=== PATIENT | male | born 1940 | race Caucasian/White ===

== ENCOUNTER → 2024-01-04 15:18 | Outpatient (REF) | payer BC, SELFPAY ==
[2024-01-04 16:25] LABS: Urine Albumin Trace (Neg - Trace); Urine Bilirubin Negative (Negative); Urine Character Clear (Clear); Urine Color Yellow; Urine Glucose Negative (Negative); Urine Ketone Negative (Negative); Urine Leukocyte 2+ (Negative); Urine Nitrite Negative (Negative); Urine Occult Blood Negative (Negative); Urine Urobilinogen Negative (Neg - 1+)
[2024-01-04 16:35] LABS: Urine Bacteria Many (Negative); Urine Red Blood Cell 0-2 /HPF (0-2); Urine White Cell 80-90 /HPF (0-5)
== END ==
LOC: REG 15:18
PROVIDERS: ATTENDING PHYSICIAN Family Medicine
DX: R39.9 Unspecified symptoms and signs involving the genitourinary system (principal); R39.15 Urgency of urination
CPT/HCPCS: 81003; 81015; 87077; 87086

== ENCOUNTER 2024-01-09 11:52 | Emergency (ER) | payer BC, SELFPAY ==
[2024-01-09 12:04] VITALS: BP 130/73
--- NOTE | 2024-01-09 15:24 | ED.GENMED ---
History of Present Illness
General
Chief Complaint: Back Pain
Source: patient, records, spouse and family
Exam Limitations: none
Time Seen by Provider: 01/09/24 15:08
Nursing documentation reviewed up to this point in time: agreed with
History of Present Illness
History of Present Illness:
83-year-old male presents emergency room with thoracic back pain since Tuesday. He fell on Tuesday and was seen at [facility]. He had a small subarachnoid hemorrhage that was observed in the emergency department. He was able to be discharged on
Tuesday night after a repeat CT scan. He is having severe pain. He took an oxy contin that he had from the past.
Past History
Past History
ED Past Medical History: Cancer (Prostate CA), CVA, GERD, HTN, Hypercholesterolemia, Other (Aortic stenosis, Gi bleeding, Cellulitis, ) and Other (TIA)
ED Past Surgical History: Cardiac (Aortic valve replaced), Orthopedic (Total right hip replacement. Left total knee replacement), Tonsilectomy and Other (cystectomy)
Social History
Tobacco: Non-smoker
Alcohol: None
Drug: None
Personal:
Living: with family
Employment: Retired
Review of Systems
Review of Systems
Allergies reviewed?: Yes
All Other Systems: Not applicable
Constitutional: Reports no symptoms
EENT: Reports no symptoms
Respiratory: Reports no symptoms
Cardiac: Reports no symptoms
ABD/GI: Reports no symptoms
: Reports no symptoms
Musculoskeletal: Reports back pain
Skin: Reports no symptoms
Neurological: Reports no symptoms
Endocrine: Reports no symptoms
Hematologic/Lymphatic: Reports no symptoms
Psychiatric: Reports no symptoms
Phy Exam
Physical Exam
Physical Exam:
Physical Exam
General: no apparent distress, not acutely ill
Neck: supple. no meningeal signs. normal posterior pharynx
Heart: s1/s2 regular rate and rhythm, no murmur. equal radial
pulses.
HEENT: Pupils equal round reactive to light, EOMI
Back: Mild tenderness to palpation at T6/T7, no step-off
Lungs: no acute respiratory distress. clear bilaterally
Abdomen: normal bowel sounds. not tender. no CVAT
Neuro: alert and oriented. no focal neurological deficits cranial nerves II through XII intact
Skin: no rash
Psychiatric: well kept. interactive and cooperative
Extremities: no edema. no calf tenderness. negative homans. good distal pulses
Course
Orders/Labs/Results
Orders:
Orders
01/09/24 15:23
CR Thoracic Spine 3 Views Urgent
Reason For Exam: midthoracic pain after fall 3 days ago
01/09/24 17:28
Cephalexin Monohydrate [Keflex] 500 mg PO NOW STA
Vital Signs
Initial and Last Documented VS:
Initial Vital Signs
Temp Pulse Resp BP Pulse Ox
97.9 F 60 16 130/73 96
01/09/24 12:04 01/09/24 12:04 01/09/24 12:04 01/09/24 12:04 01/09/24 12:04
Last Documented Vital Signs
Temp Pulse Resp BP Pulse Ox
97.9 F 60 18 129/71 99
01/09/24 12:04 01/09/24 16:50 01/09/24 16:50 01/09/24 16:50 01/09/24 16:50
MDM/Problems Addressed
Differential Diagnosis Includes:
UTI, vertebral fracture
MDM/Problems Addressed:
83-year-old male with thoracic pain after fall. No fracture. Do not suspect dissection. Patient also with UTI. Treat with Keflex. Follow-up with primary care.
*Radiology
Radiology exam reviewed: radiology read reviewed (T-spine x-ray no acute findings)
*Pulse Oximetry
Patient hypoxic: no
*Critical Care Note
Total Time (30-74mins, 75-104mins- exclusive of procedures): Not Applicable
Patient Management
Social determinants of health affecting care: Living situation and Strong social support
Escalation/DeEscalation of care consider admission/obs:
Admit not indicated
ED Attending Note
-
Portions of this chart may have been created with voice recognition software.� Occasional wrong word or��sound alike� substitutions may have occurred due to the inherent limitations of voice recognition software.
Discharge Plan
Departure
Patient Disposition: Home (Routine Discharge)
Date of Disposition: 01/09/24
Time of Disposition: 17:30
Patient with high blood pressure during this ER visit?: Yes
Condition: Good
Discharge Problem:
Pain in thoracic spine, Acute UTI
Instructions: Upper Back Pain (DC), Urinary Tract Infection, Adult ED, BLOOD PRESSURE
Prescriptions:
New
cephalexin 500 mg capsule
500 mg PO Q12H 7 Days Qty: 14 0RF
No Action
ascorbic acid (vitamin C) [Vitamin C] 500 mg Tablet
500 mg PO Q48H
cholecalciferol (vitamin D3) [Vitamin D3] 25 mcg (1,000 unit) Tablet
50 mcg PO Q48H
multivitamin Tablet
1 tab PO DAILY
vitamin B complex Tablet Extended Release
1 tab PO Q48H
lidocaine 4 % Adhesive Patch,Medicated
1 patch topical DAILY Qty: 30 0RF
docusate sodium 100 mg Capsule
100 mg PO BID Qty: 60 0RF
polyethylene glycol 3350 [HealthyLax] 17 gram Powder In Packet
17 g PO DAILY Qty: 30 0RF
acetaminophen [Pain Relief ES (acetaminophen)] 500 mg Tablet
1,000 mg PO TID Qty: 60 0RF
baclofen 5 mg Tablet
5 mg PO BID Qty: 14 0RF
oxycodone 5 mg tablet
5 mg PO Q6H PRN (Reason: Pain) Qty: 10 0RF
Referrals:
Zheng Reyes MD [Family Provider] - Call in 1-3 days for appt
Interventions
Interventions:
*Nursing Disposition Last Done: 01/09/24 17:51
ED-Musculoskeletal Assessment Last Done: 01/09/24 16:00
Discharge Date and Time
Discharge Date/Time: 01/09/24 17:52
Print Language: BRAZILIAN
[2024-01-09 16:50] VITALS: BP 129/71
[2024-01-09] MEDS: KEFLEX 500 MG PO (17:42)
== END 2024-01-09 17:52 | disposition home or self-care (01) ==
LOC: EMR 11:52
PROVIDERS: EMERGENCY PHYSICIAN Emergency Medicine; FAMILY PHYSICIAN Family Medicine
DX: M54.6 Pain in thoracic spine (principal); N39.0 Urinary tract infection, site not specified; I10 Essential (primary) hypertension; W19.XXXA Unspecified fall, initial encounter
CPT/HCPCS: 99283; 72072

== ENCOUNTER → 2024-01-19 14:55 | Outpatient (REF) | payer MEDICARE, BC, SELFPAY ==
[2024-01-19 16:01] LABS: Urine Albumin Negative (Neg - Trace); Urine Bilirubin Negative (Negative); Urine Character Clear (Clear); Urine Color Yellow; Urine Glucose Negative (Negative); Urine Ketone Negative (Negative); Urine Leukocyte Trace (Negative); Urine Nitrite Negative (Negative); Urine Occult Blood Negative (Negative); Urine Urobilinogen Negative (Neg - 1+)
[2024-01-19 16:09] LABS: Urine Bacteria Few (Negative); Urine Red Blood Cell 0-2 /HPF (0-2)
== END ==
LOC: REG 14:55
PROVIDERS: ATTENDING PHYSICIAN Family Medicine
DX: N30.00 Acute cystitis without hematuria (principal)
CPT/HCPCS: 81003; 81015; 87077; 87086; 87186

== ENCOUNTER 2024-03-06 11:40 | Inpatient (IN) | payer MEDICARE, BC, SELFPAY ==
[2024-03-03] VITALS (7 sets, daily range): BP systolic 158–176; BP diastolic 76–101; BMI 27.9; BMI 28.0
[2024-03-03 19:03] LABS: % Basophils 0.6 % (0-2); % Eosinophils 1.3 % (0-6); % Immature Granulocytes 1.1 % (0-0.5); % Monocytes 4.7 % (1.7-9.3); % Neutrophils 79.3 % (42.2-75.2); Absolute Basophils 0.1 10^3/uL (0-0.2); Absolute Eosinophils 0.2 10^3/uL (0-0.7); Absolute Immature Granulocytes 0.2 10^3/uL (0-0.05); Absolute Lymphocytes 1.7 10^3/uL (1.2-3.4); Absolute Monocytes 0.6 10^3/uL (0.1-0.6); Absolute Neutrophils 10.6 10^3/uL (1.4-6.5); Hematocrit 41.8 % (39.0-52.0); Hemoglobin 12.8 g/dL (13.0-18.0); Mean Corp Hgb Conc. 30.6 g/dL (33.0-37.0); Mean Corpuscular Volume 88.2 fL (80.0-94.0); Mean Platelet Volume 10.7 fL (7.4-10.4); Nucleated Red Blood Cells % 0 % (-); Platelet Count 153 10^3/uL (130-400); Red Blood Cell Count 4.74 10^6/uL (4.70-6.10); Red Cell Dist. Width 16.5 % (11.5-14.5); White Blood Cell Count 13.3 10^3/uL (4.8-10.8)
[2024-03-03 19:13] LABS: ALT (SGPT) 21 U/L (0-50); AST (SGOT) 31 U/L (17-59); Albumin 3.5 g/dl (3.5-5.0); Alkaline Phosphatase 129 U/L (38-126); Blood Urea Nitrogen 25 mg/dl (9-20); Calcium 8.7 mg/dl (8.4-10.2); Carbon Dioxide 29 mmol/L (22-30); Chloride 102 mmol/L (98-107); Estimated Creatinine Clearance 76 ml/min; Glucose 96 mg/dl (70-99); Potassium 4.1 mmol/L (3.5-5.1); Sodium 138 mmol/L (135-145); Total Bilirubin 0.9 mg/dl (0.2-1.3); Total Protein 6.2 g/dl (6.3-8.2); eGFR > 60.00
--- NOTE | 2024-03-03 20:43 | ED.MUSCINJ ---
HPI-Injury
General
Chief Complaint: Fall
Source: patient
Exam Limitations: none
Time Seen by Provider: 03/03/24 20:03
Nursing documentation reviewed up to this point in time: agreed with
History of Present Illness-Injury
Is this injury a work related problem?: No
Is pt an associate of [facility]?: No
Initial Injury comments:
Patient had a trip and all at home. Denies hitting his head. Complains of right shoulder and right hip pain. Incident occurred just [place]. Unable to get self up. Brought to ED via EMS for eval.[facility] brain surger for brain tumor. Walks with a walker
normally. Unable to bear weight RLE
Past History
Past History
ED Past Medical History: Cancer (Prostate CA), CVA, GERD, HTN, Hypercholesterolemia, Other (Aortic stenosis, Gi bleeding, Cellulitis, ) and Other (TIA)
ED Past Surgical History: Cardiac (Aortic valve replaced), Orthopedic (Total right hip replacement. Left total knee replacement), Tonsilectomy and Other (cystectomy)
Social History
Tobacco: Non-smoker
Alcohol: None
Drug: None
Personal:
Living: with family
Employment: Retired
Review of Systems
Review of Systems
Allergies reviewed?: Yes
All Other Systems: ROS reviewed and negative except as documented in HPI and ROS
Constitutional: Reports no symptoms
EENT: Reports no symptoms
Respiratory: Reports no symptoms
Cardiac: Reports no symptoms
ABD/GI: Reports no symptoms
: Reports no symptoms
Musculoskeletal: Reports joint pain (pain to right shoulder right hip)
Skin: Reports no symptoms
Neurological: Reports weakness
Psychiatric: Reports no symptoms
Musculoskeletal Injury Exam
Musculoskeletal Injury Exam
Right Shoulder:
Pain with Movement?: Moderate
Tender to palpation?: Moderate
Soft tissue swelling?: None
External deformity and angulation?: None
Joint effusion?: None
Contusion?: Moderate
Hematoma-local bleeding into tissue?: None
Crepitus with movement?: No
Joint instability?: No
Malalignment/deformity?: No
Range of motion: Limited
Distal skin color and temperature: normal-warm & good color
Capillary Refill: normal
Normal distal neurovascular exam?: Yes
Right Hip:
Pain with Movement?: Moderate
Tender to palpation?: Moderate
Soft tissue swelling?: None
External deformity and angulation?: None
Joint effusion?: None
Contusion?: Moderate
Hematoma-local bleeding into tissue?: None
Strain- Sprain- Tear (Connective tissue injury)?: Moderate
Crepitus with movement?: No
Joint instability?: No
Malalignment/deformity?: No
Range of motion: Limited
Distal skin color and temperature: normal-warm & good color
Capillary Refill: normal
Normal distal neurovascular exam?: Yes
Phy Exam
General Physical Exam
General Presentation: well appearing and moderate distress
General age: appears stated age
General Skin: warm and dry
General Habitus: normal
General Mental: alert
General Hydration: appears well hydrated
Cardiovascular Exam
Cardiovascular Exam: regular rate/rhythm
Pulmonary Exam
Pulmonary Exam: no respiratory distress and chest non tender
Gastrointestinal Exam
Gastrointestinal Exam: normal bowel sounds and non tender
Musculoskeletal Exam
Musculoskeletal Exam: neuro vasc intact
Skin Exam
Skin Exam: normal color, warm/dry and no rash
Psychiatric Exam
Psychiatric Exam: normal mood/affect
Injury Course
Orders/Labs/Results
Orders:
Orders
03/03/24 Dinner
Regular
At Your Request: Limited Participation
Does patient need a safe tray?: No
03/03/24 18:19
CR Hip - RT w/wo Pel 2-3 Vw* Urgent
Comment:
Reason For Exam: fall
Include a pelvis x-ray?: Yes
CR Shoulder, Trauma - Right Urgent
Comment:
Reason For Exam: fall
03/03/24 18:26
Complete Blood Count/With Diff Urgent
Comprehensive Metabolic Panel Urgent
03/03/24 20:57
HYDROmorphone [Dilaudid] 0.5 mg IV NOW STA
Ondansetron Injectable [Zofran] 4 mg IV NOW STA
03/03/24 21:16
Admit/Transfer Patient As Directed
Co-Sign Provider:
Level of Care: Observation services
Assign to:: Medical/Surgical
Physician / Group: dylan
Diagnosis: proximal humerus fracture
Shoulder Immobilizer Right- Tx ONCE
PRN Pain Medication Management As Directed
May give lesser potent ordered pain med per pt: Yes
preference::
Protocol:: Medication orders for pain may be administered in a
manner that supports deferring to patient preference
when the pt is:
- Requesting an ordered lesser potent pain medication.
Least to most potent pain medications are defined
as: acetaminophen < NSAID < tramadol < opioids
(morphine, oxycodone, hydromorphone).
- Requesting a lesser dose of the same medication IF
ORDERED.
- Requesting a less intrusive route of administration
if both routes are prescribed by the provider (PO <
IV).
03/03/24 21:17
Code Status As Directed
Resuscitation Status: Full Code
03/03/24 22:21
Acetaminophen [Tylenol] 650 mg PO Q4HPRN PRN
Amiodarone [Pacerone] 200 mg PO DIRECTED
HYDROmorphone [Dilaudid] 0.5 mg IV Q4HPRN PRN
Ondansetron Injectable [Zofran] 4 mg IV Q6HPRN PRN
03/03/24 22:21
Activity As Directed
Activity Level: As Tolerated
Vital Signs As Directed
Frequency: Per unit guidelines
Ot Eval And Treat Routine
Pt Eval And Treat Routine
Activity Level: As Tolerated
DX Deep Vein Thrombosis Video Routine
03/04/24 06:00
Complete Blood Count/With Diff IN AM
Comprehensive Metabolic Panel IN AM
03/04/24 08:00
Heparin 5,000 units SC Q12
Metoprolol Xl [Toprol Xl] 25 mg PO DAILY
Valsartan [Diovan] 160 mg PO DAILY
Abnormal Lab Results
03/03/24
18:26
WBC 13.3 H 10^3/uL
(4.8-10.8)
Hgb 12.8 L g/dL
(13.0-18.0)
MCHC 30.6 L g/dL
(33.0-37.0)
RDW 16.5 H %
(11.5-14.5)
MPV 10.7 H fL
(7.4-10.4)
Abs Immat Gran (auto) 0.2 H 10^3/uL
(0-0.05)
Absolute Neuts (auto) 10.6 H 10^3/uL
(1.4-6.5)
Immature Gran % 1.1 H %
(0-0.5)
Neutrophils % 79.3 H %
(42.2-75.2)
Lymphocytes % 13.0 L %
(20.5-51.1)
BUN 25 H mg/dl
(9-20)
Alkaline Phosphatase 129 H U/L
(38-126)
Total Protein 6.2 L g/dl
(6.3-8.2)
03/03/24 18:26
01/25/25 18:26
*Radiology
Radiology exam reviewed: radiology read reviewed
*Pulse Oximetry
Patient hypoxic: no
*Critical Care Note
Total Time (30-74mins, 75-104mins- exclusive of procedures): Not Applicable
Update Note
Update Note:
Patient to ED s/p fall. Complains of pain to right shoulder and right hip. Xrays reviewed. Fx noted of right humeral neck and inferior/superior Pelvic rings. He is unable to safely transfer, unable to ambulate. Will admit to hospitalist. Will
need PT, case management consult.
ED Attending Note
-
Portions of this chart may have been created with voice recognition software.� Occasional wrong word or��sound alike� substitutions may have occurred due to the inherent limitations of voice recognition software.
Discharge Plan
Departure
Patient Disposition: Admit
Date of Disposition: 03/03/24
Time of Disposition: 20:52
Presentation/result/management discussed w/ accepting MD/DO: Hospitalist
Patient with high blood pressure during this ER visit?: No
Condition: Fair
Covid-19: Not Applicable
Discharge Problem:
Fracture, humerus, proximal, Fracture of pubic ramus, Ambulatory dysfunction
Interventions
Interventions:
*Risk Screen - Suicide Last Done: 03/03/24 18:08
*General Assessment Last Done: 03/03/24 18:08
*Neglect/Abuse Screening Last Done: 03/03/24 18:08
ED- Fall Risk Assessment Last Done: 03/03/24 22:15
*ED COVID-19 Vaccine History Last Done: 03/03/24 18:38
*Nursing Disposition Last Done: 03/03/24 22:15
ED-Musculoskeletal Assessment Last Done: 03/03/24 18:38
ED- Neurological Assessment Last Done: 03/03/24 18:38
ED-Skin Assessment Last Done: 03/03/24 18:38
Discharge Date and Time
Discharge Date/Time: 03/03/24 22:16
[2024-03-03] MEDS: ZOFRAN 4 MG IV (21:02)
[2024-03-03] MEDS: DILAUDID 0.5 MG IV (21:04)
--- NOTE | 2024-03-03 21:23 | HPS.HSE ---
Family Physician
-
Family Physician: Zheng Reyes
Chief Complaint
-
fall
History of Present Illness
83-year-old male past medical history of brain tumor status post resection in [place] with residual balance difficulties, constipation, paroxysmal atrial fibrillation, HFpEF, aortic stenosis status post bioprosthetic AVR, hypertension, prostate
cancer, presenting with fall. He was trying to get up and grab his walker and he lost balance and fell onto his right side. He is complaining of pain of his right shoulder as well as his right hip.
He does not take any blood thinners. Denies smoking or alcohol use.
Medical History
Past Medical History
Past Medical History: Reports Other (brain tumor status post resection in [place] with residual balance difficulties, constipation, paroxysmal atrial fibrillation, HFpEF, aortic stenosis status post bioprosthetic AVR, hypertension, prostate cancer,)
Past Surgical History: Reports None
Social History
Tobacco: Non-smoker
Alcohol: None
Drug: None
Family History
Family History: Not pertinent
Allergies / Home Medications
Allergies reflects when Allergies were last updated in [facility].
Home Medications with original date entered in [facility]
Allergy/Medication List:
Allergies
Allergy/AdvReac Type Severity Reaction Status Date / Time
cat dander Allergy WATERY Verified 03/03/24 18:18
EYES/TINGLING
mold Allergy itchy eyes Verified 03/03/24 18:18
pollen extracts Allergy PND, Verified 03/03/24 18:18
cough,
nasal
congestion
ragweed pollen Allergy WATERY Verified 03/03/24 18:18
EYES/TINGLING
tree nut Allergy FLUSHING/IT Verified 03/03/24 18:18
LIU
stone fruit Allergy flushing,it Uncoded 03/03/24 18:18
liu
Home Medications
amiodarone 200 mg tablet 200 mg PO DIRECTED 03/03/24
metoprolol succinate 25 mg tablet,extended release 24 hr 25 mg PO DAILY 03/03/24
valsartan 160 mg tablet 160 mg PO DAILY 03/03/24
Review of Systems
-
History Source: Patient
A 12 point ROS was completed and negative except as noted: Yes
Constitutional: Reports No Symptoms
EENT: Reports No Symptoms
Respiratory: Reports No Symptoms
Cardiac: Reports No Symptoms
Abdomen/GI: Reports No Symptoms
: Reports No Symptoms
Musculoskeletal: Reports No Symptoms
Skin: Reports No Symptoms
Neurological: Reports No Symptoms
Endocrine: Reports No Symptoms
Hematologic/Lymphatic: Reports No Symptoms
Psych: Reports No Symptoms
Physical Exam
Vital Signs
Vital Signs
Temp Pulse Resp BP Pulse Ox
98.6 F 60 20 173/76 91
03/03/24 18:08 03/03/24 21:01 03/03/24 21:01 03/03/24 21:01 03/03/24 18:08
Physical Exam
General: Well Developed, Well Nourished and No Apparent Distress
HEENT: NormoCephalic, Moist mucous membranes and Atraumatic
Respiratory: Clear
Cardiac: S1/S2 and Regular Rhythm; No Murmur or Rub
GI: Soft, Non Tender, Non Distended and Normal Bowel Sounds; No Organomegaly
Rectal: Deferred by Provider
Musculoskeletal: No Clubbing, No Cyanosis and No Edema
Skin: No Rash
Neuro: Nonfocal/grossly intact
Laboratory Results
-
03/03/24 18:26
03/03/24 18:
Laboratory Results
Total Bilirubin 0.9 mg/dl (0.2-1.3) 03/03/24 18:26
AST 31 U/L (17-59) 03/03/24 18:
ALT 21 U/L (0-50) 03/03/24 18:26
Alkaline Phosphatase 129 U/L (38-126) H 03/03/24 18:26
Data Reviewed
-
Lab Data: Labs Reviewed by me
Old Records: Reviewed
Impression/Plan
-
IMPRESSION:
PLAN:
# Comminuted fracture of the proximal humerus involving surgical neck
#Questionable nondisplaced fracture of the right clavicle middle third
-Sling to be placed
-Tylenol, Dilaudid for pain
-PT/OT
-Follow-up with [facility]
# Mildly displaced right superior/inferior pubic rami fractures
-Pain control
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
Constipation
Aortic stenosis status post bioprosthetic AVR
Paroxysmal atrial fibrillation
-Not on anticoagulation
-Continue amiodarone
-Metoprolol
Chronic HFpEF
Essential hypertension
-Continue valsartan
Prostate cancer
Full code
DVT prophylaxis�heparin
Regular diet
--- NOTE | 2024-03-03 22:37 | PTCARENOTE ---
Patient arrived to [facility] from ED, assisted to bed from stretcher. Patient is AAOx3, very pleasant, R arm sling in place. C/o pain to R arm and R hip. VSS, assessment on going.
[2024-03-03] MEDS: TYLENOL 650 MG PO (22:39)
--- NOTE | 2024-03-03 23:10 | PTCARENOTE ---
Patient normally uses CPAP at night while sleeping but stated his machine at home has been broken for last two weeks; he is also unsure of his settings. This RN offered to get orders for CPAP but patient declined at this time.
[2024-03-04] MEDS: DILAUDID 0.5 MG IV ×4 (02:06→18:32)
[2024-03-04 02:13] VITALS: BP 136/73
[2024-03-04 06:00] VITALS: BMI 28.1
[2024-03-04 06:24] LABS: % Basophils 0.6 % (0-2); % Eosinophils 0.1 % (0-6); % Immature Granulocytes 0.5 % (0-0.5); % Lymphocytes 6.4 % (20.5-51.1); % Monocytes 3.9 % (1.7-9.3); % Neutrophils 88.5 % (42.2-75.2); Absolute Basophils 0.1 10^3/uL (0-0.2); Absolute Immature Granulocytes 0.1 10^3/uL (0-0.05); Absolute Lymphocytes 0.9 10^3/uL (1.2-3.4); Absolute Monocytes 0.6 10^3/uL (0.1-0.6); Absolute Neutrophils 12.3 10^3/uL (1.4-6.5); Hematocrit 35.9 % (39.0-52.0); Hemoglobin 11.2 g/dL (13.0-18.0); Mean Corp Hgb Conc. 31.2 g/dL (33.0-37.0); Mean Corpuscular Hgb 27.3 pg (27.0-31.0); Mean Corpuscular Volume 87.3 fL (80.0-94.0); Nucleated Red Blood Cells % 0 % (-); Platelet Count 134 10^3/uL (130-400); Red Blood Cell Count 4.11 10^6/uL (4.70-6.10); Red Cell Dist. Width 16.6 % (11.5-14.5); White Blood Cell Count 13.9 10^3/uL (4.8-10.8)
[2024-03-04 06:43] LABS: ALT (SGPT) 18 U/L (0-50); AST (SGOT) 28 U/L (17-59); Albumin 2.9 g/dl (3.5-5.0); Alkaline Phosphatase 94 U/L (38-126); Blood Urea Nitrogen 31 mg/dl (9-20); Calcium 8.2 mg/dl (8.4-10.2); Carbon Dioxide 26 mmol/L (22-30); Chloride 104 mmol/L (98-107); Estimated Creatinine Clearance 76 ml/min; Glucose 102 mg/dl (70-99); Potassium 5.1 mmol/L (3.5-5.1); Sodium 137 mmol/L (135-145); Total Bilirubin 1.2 mg/dl (0.2-1.3); Total Protein 5.5 g/dl (6.3-8.2); eGFR > 60.00
[2024-03-04 07:20] VITALS: BP 136/79
--- NOTE | 2024-03-04 09:20 | W.PN.HOSP.TC ---
Today's Communication/Plan
-
Consult orthopedics
Continue with pain regimen and PT eval
Assessment / Plan
Assessment / Plan
Mechanical fall leading to below fractures
# Comminuted fracture of the proximal humerus involving surgical neck
#Questionable nondisplaced fracture of the right clavicle middle third
-Consult orthopedics because the humerus fracture is involving the surgical neck. Continue with the sling.
-cw Tylenol, Dilaudid for pain
-cw PT/OT
# Mildly displaced right superior/inferior pubic rami fractures
-cw Pain control
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
Paroxysmal atrial fibrillation
-Not on anticoagulation
-Continue amiodarone
-Metoprolol
-Check EKG
Chronic HFpEF -clinically seems compensated . LE edema noted which he says is chronic. Not on diuretics. Follow wt and for symptoms.
Aortic stenosis status post bioprosthetic AVR - no SOB or CP .
Essential hypertension
-Continue valsartan
Prostate cancer
Full code
DVT prophylaxis�heparin
Regular diet
Anticipated Discharge: 24 - 48 hours
Subjective/Interval History
-
Date of Service: March 04, 2024
Complains of pain from the right arm and as well as the right pelvis with movement.
Is a chronic neck pain no different after the fall. He is usually restricted motions to the right side of the neck because of his arthritis.
Since his brain surgery he has been unstable and uses a walker. Yesterday he was trying to get up from the sofa which is bit low for him and he lost balance and he fell onto the right side. No loss of consciousness. No prior falls leading to
fractures recently. In the past he had a fall and right hip fracture which needed surgery.
Did not see any new changes with his body or any new medical issues per patient.
Denies lightheadedness or dizziness when he stands up from chairs or his bed.
Objective Data
-
Labs:
Laboratory Results
03/04/24
05:23
WBC 13.9 H
Hgb 11.2 L
Hct 35.9 L
Plt Count 134
Sodium 137
Potassium 5.1
Chloride 104
Carbon Dioxide 26
BUN 31 H
Creatinine 0.9
Glucose 102 H
Calcium 8.2 L
Total Bilirubin 1.2
AST 28
ALT 18
Alkaline Phosphatase 94
Vital Signs:
Vital Signs
Temp Pulse Resp BP Pulse Ox
97.2 F 61 14 136/79 100
03/04/24 07:20 03/04/24 07:20 03/04/24 07:20 03/04/24 07:20 03/04/24 07:20
I&O
03/03/24 03/04/24 03/05/24
06:59 06:59 06:59
Intake Total 460 / 460
Balance 460 / 460
Review of Systems
-
Constitutional: Denies Fever
EENT: Denies Sore Throat
Respiratory: Denies Cough or Trouble Breathing
Cardiac: Denies Chest Pain
Abdomen/GI: Denies Abdominal Pain, Nausea or Vomiting
Neuro: Denies Dizzy
Physical Exam
-
General: No Apparent Distress
HEENT: Moist Mucous Membranes
Respiratory: Clear to Auscultation (Anteriorly) and Non Labored Respirations; Negative Accessory Resp Muscle Use
Cardiac: Regular Rhythm and S1/S2
GI: Soft
Musculoskeletal: Edema, Right Lower Extrem and Edema, Left Lower Extrem (1+ BL . Chronic per pt)
Neuro: AO x 3
Psych: Calm
Data Reviewed
-
Labs: Labs Reviewed by me
[2024-03-04 10:25] VITALS: BP 136/78; PULSE 61
[2024-03-04 10:38] VITALS: BP 136/78; PULSE 61
--- NOTE | 2024-03-04 11:07 | CON.ORTHO ---
Consultation
-
Date/Time Consultation Requested: 03/04/2024
Date/Time Consultation Performed: 03/04/2024
Requesting Provider: Dr. Contreras
Performing Provider: Arti Chowdhury PA-C, for Dr. Steve Treviño
Reason for Consultation: Right pelvic fracture; right proximal humerus fracture
Consultation - Orthopedics
History
HPI: This is an 83-year-old male who sustained a fall prior to arrival. He was complaining of right shoulder and right hip pain and was unable to get himself up. X-rays of the right shoulder and right hip were taken in the emergency department.
These demonstrated a comminuted fracture of the proximal humerus involving the surgical neck and questionable nondisplaced fracture of the right clavicle. He is also noted to have superior and inferior pubic rami fractures of his right hip with
mild displacement. 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 He had a short rehab stay and was then discharged home with home care. He recently had another fall in which he hit his head and
was admitted at [facility]. They have continued with the home care through [facility]. Would have only relies on a walker to ambulate and does currently live with his at home.
past medical history: Significant for brain tumor, paroxysmal atrial fibrillation, HFpEF, aortic stenosis, hypertension, prostate cancer.
Past surgical history: Brain mass resection, aortic valve replacement, right hip hemiarthroplasty, right hip conversion to total hip arthroplasty, left hip hemiarthroplasty.
Social history: Denies tobacco or alcohol use. Lives at home with spouse, uses walker at baseline.
Family history: Noncontributory.
Review of systems: All systems reviewed and negative except for those mentioned in HPI.
Allergies / Home Medications
Allergy/AdvReac Type Severity Reaction Status Date / Time
cat dander Allergy WATERY Verified 03/03/24 18:18
EYES/TINGLING
mold Allergy itchy eyes Verified 03/03/24 18:18
pollen extracts Allergy PND, Verified 03/03/24 18:18
cough,
nasal
congestion
ragweed pollen Allergy WATERY Verified 03/03/24 18:18
EYES/TINGLING
tree nut Allergy FLUSHING/IT Verified 03/03/24 18:18
LIU
stone fruit Allergy flushing,it Uncoded 03/03/24 18:18
liu
�Medication �Instructions �Recorded
amiodarone 200 mg tablet 200 mg PO DIRECTED AFIB 03/03/24
metoprolol succinate 25 mg 25 mg PO DAILY Blood Pressure 03/03/24
tablet,extended release 24 hr
valsartan 160 mg tablet 160 mg PO DAILY Blood Pressure 03/03/24
Vital Signs / Lab Results
Temp Pulse Resp BP Pulse Ox
97.2 F 61 14 136/79 100
03/04/24 07:20 03/04/24 07:20 03/04/24 07:20 03/04/24 07:20 03/04/24 07:20
03/04/24 05:23
03/04/24 05:23
Physical examination:
General: Well-developed, well-nourished male in no acute distress. AAOx4.
HEENT: Atraumatic, normocephalic, neck supple.
Lungs: Nonlabored breathing on room air, no audible wheezing.
Right hip: Full range of motion with mild discomfort in the groin. No tenderness to palpation. Full range of motion of knee without pain. Calf is soft and nontender to palpation. Neurovascular intact distally.
Right shoulder: Moderate swelling over proximal aspect of upper arm. Tenderness to palpation over proximal humerus. Range of motion not tested of shoulder due to known fracture. Full range of motion of elbow, wrist, and hand without pain.
Neurovascular intact distally.
Radiographic studies:
X-rays of the right hip show evidence of a right total hip arthroplasty in excellent alignment. Mildly displaced inferior and superior pubic rami fractures noted.
X-rays of the right shoulder show evidence of a comminuted proximal humerus fracture. Questionable fracture of the distal third of the clavicle.
Assessment / Plan
Assessment: Right pubic rami fractures; right proximal humerus fracture.
Plan: Patient seen in tandem with Dr. Treviño. Unfortunately, Mr. Jones sustained right sided pelvic fractures as well as a right proximal humerus fracture during his fall yesterday. At this time, these do not require surgical intervention. For
the right proximal humerus fracture, he should remain nonweightbearing on the right upper extremity. He should remain immobilized in the sling full-time and lift nothing heavier than a coffee cup in his right hand. In regards to the right pubic
rami fractures, he may weight-bear as tolerated, using an assistive device. Per his , Felicia, he does rely heavily on his walker for ambulation due to balance issues following his brain surgery. He will work with PT/OT while inpatient, but will
likely require a rehab stay once stabilized. We will plan to follow-up with him on an outpatient basis. We would like to see him in the office in 1 to 2 weeks for repeat x-rays of the right shoulder and pelvis. All questions were answered and
patient and his were in agreement with treatment recommendations.
[2024-03-04 11:35] LABS: TSH 0.77 uIU/ml (0.47-4.68)
[2024-03-04] MEDS: DIOVAN 160 MG PO (11:43)
[2024-03-04] MEDS: TOPROL XL 25 MG PO (11:43)
[2024-03-04] MEDS: HEPARIN 5000 UNITS SC ×2 (11:44→20:25)
--- NOTE | 2024-03-04 11:56 | PTOTSP ---
Acute Care Evaluation
Pt currently presents with clinical signs of mild to moderate previously dx pharyngeal dysphagia characterized by coughing on thin liquids. Although pt can typically tolerate a certain amount of airway invasion with thin liquid consistencies when he
is at his baseline, healthy status, the combination of his chronic pharyngeal impairment with the pt's current decompensated condition, bed bound status, multiple fxs, and purposeful suppressed cough to avoid pain place the pt at a very high risk
for developing an aspiration-related PNA and subsequent complications. As a result, pt would benefit from a temporary use of a modified diet consistency while healing from his acute injury.
Recommendations:
- Regular solids, moderately thick liquids via open cup, meds whole in puree.
- Aspiration & reflux precautions: HOB upright as much as pt can tolerate during PO intake and for 60 minutes after PO intake; slow intake rate; alternate solids and liquids.
- [employer] TE[employer] LEADER to f/u re: diet tolerance; trial diet upgrades; determine if pt would benefit from an instrumental swallow study.
- Pt would benefit from [employer] TE[employer] LEADER services upon discharge to determine when the pt can be liberalized back to his baseline diet during the course of his rehabilitation from his acute injuries.
[2024-03-04] MEDS: ULTRAM 50 MG PO ×2 (12:34→20:25)
[2024-03-04] MEDS: TYLENOL 650 MG PO ×2 (12:39→20:22)
--- NOTE | 2024-03-04 13:15 | CM ---
Addendum entered by Nemo Dodson RN 03/04/24 15:48:
CM spoke with the patient's son Nishant and updated on plan. Referrals sent to SNF in [facility] with [facility]HAEL.
Original Note:
Reviewed the chart notes and spoke with the patient's spouse at the bedside. [facility] letter provided and explained. The patient's spouse had questions with regards to the letter.
The patient resides with his spouse in a one story home with one step to enter. The patient uses a rolling walker with ambulation. Patient has in home shower grab bars and shower chair. The patient is current with [facility] and has been to a SNF in
[place]. The patient's pharmacy of choice is [facility] and PCP is Zheng Reyes. PT recommending SNF/rehab. CM continues to be available to patient/family and is monitoring medical plan for needs at discharge.
Plan: Discharge to most likely SNF/rehab once bed found and precert obtained.
[2024-03-04 15:15] VITALS: BP 107/56
[2024-03-04 23:17] VITALS: BP 120/63
[2024-03-05] MEDS: TYLENOL 650 MG PO (01:56)
[2024-03-05] MEDS: ULTRAM 50 MG PO ×3 (04:11→21:07)
[2024-03-05 06:00] VITALS: BMI 27.7
[2024-03-05 06:52] LABS: Hemoglobin 10.8 g/dL (13.0-18.0); Mean Corpuscular Hgb 27.2 pg (27.0-31.0); Mean Corpuscular Volume 90.7 fL (80.0-94.0); Mean Platelet Volume 11.5 fL (7.4-10.4); Platelet Count 119 10^3/uL (130-400); Red Blood Cell Count 3.97 10^6/uL (4.70-6.10); Red Cell Dist. Width 16.9 % (11.5-14.5); White Blood Cell Count 11.2 10^3/uL (4.8-10.8)
[2024-03-05 08:10] VITALS: BP 126/71
[2024-03-05] MEDS: HEPARIN 5000 UNITS SC ×2 (08:55→20:45)
[2024-03-05] MEDS: DIOVAN 160 MG PO (08:56)
[2024-03-05] MEDS: TOPROL XL 25 MG PO (08:56)
--- NOTE | 2024-03-05 11:30 | W.PN.HOSP.TC ---
Today's Communication/Plan
-
Monitor ongoing needs for pain meds
CM for placement
Assessment / Plan
Assessment / Plan
Mechanical fall leading to below fractures
# Comminuted fracture of the proximal humerus involving surgical neck
#Questionable nondisplaced fracture of the right clavicle middle third
-Consult orthopedics because the humerus fracture is involving the surgical neck. Continue with the sling. No plan for surgical intervention
-cw Tylenol, tramadol. Required IV Dilaudid for pain yesterday. Monitor for ongoing need
-cw PT/OT
# Mildly displaced right superior/inferior pubic rami fractures
-cw Pain control
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
Paroxysmal atrial fibrillation
-Not on anticoagulation
-Continue amiodarone
-Metoprolol 25mg daily
Chronic HFpEF -clinically seems compensated . LE edema noted which he says is chronic. Not on diuretics. Follow wt and for symptoms.
Aortic stenosis status post bioprosthetic AVR - no SOB or CP .
Essential hypertension
-Continue valsartan
Prostate cancer
Full code
DVT prophylaxis�heparin
d/w with spouse and other family member at bedside.
Anticipated Discharge: Within 24 hours
Subjective/Interval History
-
Date of Service: March 05, 2024
Good appetite
pain controlled
Objective Data
-
Labs:
Laboratory Results
03/05/24
04:38
WBC 11.2 H
Hgb 10.8 L
Hct 36.0 L
Plt Count 119 L
Vital Signs:
Vital Signs
Temp Pulse Resp BP Pulse Ox
98.1 F 62 16 126/71 96
03/05/24 08:10 03/05/24 08:56 03/05/24 08:10 03/05/24 08:56 03/05/24 08:10
I&O
03/04/24 03/05/24 03/06/24
06:59 06:59 06:59
Intake Total 460 / 460 1200 / 1200 120 / 120
Output Total 100 / 100
Balance 460 / 460 1100 / 1100 120 / 120
Physical Exam
-
General: No Apparent Distress and Conversant; Negative Slurred Speech
HEENT: Moist Mucous Membranes
Respiratory: Clear to Auscultation (Anteriorly) and Non Labored Respirations; Negative Accessory Resp Muscle Use
Cardiac: Regular Rhythm and S1/S2
GI: Soft, Nontender, Nondistended and Normal Bowel Sounds
Musculoskeletal: Edema, Right Lower Extrem, Edema, Left Lower Extrem (1+ BL . Chronic per pt) and Other (RUE in sling )
Neuro: AO x 3
Psych: Calm
Data Reviewed
-
Total Time Spent with Patient (in minutes): 55
[2024-03-05 11:31] VITALS: BP 133/64; PULSE 60; O2SAT 93
[2024-03-05 11:32] VITALS: BP 133/94; PULSE 60; O2SAT 93
--- NOTE | 2024-03-05 12:54 | CM ---
Chart reviewed and met with pt and family members
PT/OT recs - acute rehab
Family requesting referrals to [facility]
Will send referrals in Care Port
Will need auth
Plan - anticipate acute rehab vs snf - pend acceptance
[2024-03-05 14:59] VITALS: BP 120/57
[2024-03-05 23:09] VITALS: BP 142/62
[2024-03-06 06:00] VITALS: BMI 28.0
[2024-03-06 07:20] VITALS: BP 140/70
[2024-03-06 08:54] LABS: % Basophils 0.6 % (0-2); % Eosinophils 5.4 % (0-6); % Immature Granulocytes 0.5 % (0-0.5); % Lymphocytes 12.2 % (20.5-51.1); % Monocytes 9.6 % (1.7-9.3); % Neutrophils 71.7 % (42.2-75.2); Absolute Eosinophils 0.4 10^3/uL (0-0.7); Absolute Lymphocytes 0.8 10^3/uL (1.2-3.4); Absolute Monocytes 0.6 10^3/uL (0.1-0.6); Absolute Neutrophils 4.8 10^3/uL (1.4-6.5); Hematocrit 30.8 % (39.0-52.0); Hemoglobin 9.6 g/dL (13.0-18.0); Mean Corp Hgb Conc. 31.2 g/dL (33.0-37.0); Mean Corpuscular Hgb 27.9 pg (27.0-31.0); Mean Corpuscular Volume 89.5 fL (80.0-94.0); Mean Platelet Volume 11.5 fL (7.4-10.4); Nucleated Red Blood Cells % 0 % (-); Platelet Count 107 10^3/uL (130-400); Red Blood Cell Count 3.44 10^6/uL (4.70-6.10); Red Cell Dist. Width 17.4 % (11.5-14.5); White Blood Cell Count 6.7 10^3/uL (4.8-10.8)
[2024-03-06] MEDS: DIOVAN 160 MG PO (10:26)
[2024-03-06] MEDS: HEPARIN 5000 UNITS SC ×2 (10:26→21:03)
[2024-03-06] MEDS: TOPROL XL 25 MG PO (10:26)
[2024-03-06] MEDS: TYLENOL 650 MG PO (10:26)
[2024-03-06] MEDS: ULTRAM 50 MG PO ×2 (10:29→21:10)
--- NOTE | 2024-03-06 11:21 | W.PN.HOSP.TC ---
Today's Communication/Plan
-
await placement
Assessment / Plan
Assessment / Plan
Mechanical fall leading to below fractures
# Comminuted fracture of the proximal humerus involving surgical neck
#Questionable nondisplaced fracture of the right clavicle middle third
-Consult orthopedics because the humerus fracture is involving the surgical neck. Continue with the sling. No plan for surgical intervention
-cw Tylenol, tramadol. Required IV Dilaudid for pain 03/04 Monitor for ongoing need
-cw PT/OT
# Mildly displaced right superior/inferior pubic rami fractures
-cw Pain control
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
Paroxysmal atrial fibrillation
-Not on anticoagulation
-Continue amiodarone
-Metoprolol 25mg daily
Chronic HFpEF -clinically seems compensated . LE edema noted which he says is chronic. Not on diuretics. Follow wt and for symptoms.
Aortic stenosis status post bioprosthetic AVR - no SOB or CP .
Essential hypertension
-Continue valsartan
Prostate cancer
Full code
DVT prophylaxis�heparin
d/w with spouse and other family member at bedside.
Dispo-await placement. medically stable.
Anticipated Discharge: Today
Subjective/Interval History
-
Date of Service: March 06, 2024
pain is controlled
tolerating diet and having BM
Objective Data
-
Labs:
Laboratory Results
03/06/24
08:29
WBC 6.7
Hgb 9.6 L
Hct 30.8 L
Plt Count 107 L
Vital Signs:
Vital Signs
Temp Pulse Resp BP Pulse Ox
98.0 F 61 14 140/70 98
03/06/24 07:20 03/06/24 07:20 03/06/24 07:20 03/06/24 07:20 03/06/24 08:00
I&O
03/05/24 03/06/24 03/07/24
06:59 06:59 06:59
Intake Total 1200 / 1200 600 / 600
Output Total 100 / 100 400 / 400
Balance 1100 / 1100 200 / 200
Physical Exam
-
General: No Apparent Distress and Conversant; Negative Slurred Speech
HEENT: Moist Mucous Membranes
Respiratory: Clear to Auscultation (Anteriorly) and Non Labored Respirations; Negative Accessory Resp Muscle Use
Cardiac: Regular Rhythm and S1/S2
GI: Soft, Nontender, Nondistended and Normal Bowel Sounds
Musculoskeletal: Edema, Right Lower Extrem, Edema, Left Lower Extrem (1+ BL . Chronic per pt) and Other (RUE in sling )
Neuro: AO x 3
Psych: Calm
[2024-03-06 13:23] VITALS: BP 138/69
[2024-03-06 13:26] VITALS: BP 138/69; PULSE 62; O2SAT 92
[2024-03-06 15:02] VITALS: BP 118/62
--- NOTE | 2024-03-06 15:54 | CM ---
Chart reviewed. Met with pt and at bedside
[facility] - no available beds. [facility] contacted pts - reviewed location and goals of care in acute rehab -
Pts feels the oc[facility] of [facility] is too far and therapy may be too much
Now preferring SNF - has PAC list - will review with family and update CM with options
Status changed to inpatient - given IMM
Will need auth when bed obtained
Plan - SNF when bed/auth obtained
[2024-03-06 23:27] VITALS: BP 158/47
[2024-03-07 05:56] LABS: % Basophils 0.9 % (0-2); % Eosinophils 4.9 % (0-6); % Immature Granulocytes 0.7 % (0-0.5); % Lymphocytes 16.2 % (20.5-51.1); % Monocytes 11.7 % (1.7-9.3); % Neutrophils 65.6 % (42.2-75.2); Absolute Basophils 0.1 10^3/uL (0-0.2); Absolute Eosinophils 0.3 10^3/uL (0-0.7); Absolute Lymphocytes 0.9 10^3/uL (1.2-3.4); Absolute Monocytes 0.6 10^3/uL (0.1-0.6); Absolute Neutrophils 3.6 10^3/uL (1.4-6.5); Hematocrit 30.2 % (39.0-52.0); Mean Corp Hgb Conc. 29.8 g/dL (33.0-37.0); Mean Corpuscular Hgb 27.1 pg (27.0-31.0); Nucleated Red Blood Cells % 0 % (-); Platelet Count 117 10^3/uL (130-400); Red Blood Cell Count 3.32 10^6/uL (4.70-6.10); Red Cell Dist. Width 17.5 % (11.5-14.5); White Blood Cell Count 5.5 10^3/uL (4.8-10.8)
[2024-03-07 06:00] VITALS: BMI 28.1
[2024-03-07 07:30] VITALS: BP 157/72
--- NOTE | 2024-03-07 08:59 | CM ---
Addendum entered by Samantha Hernandez 03/07/24 16:38:
Additional referrals sent in Care Port
Original Note:
Spoke with pts Yasmin
SNF options - [facility]
Referral sent in Care port
Awaiting response
Plan - SNF when bed obtained
[2024-03-07] MEDS: HEPARIN 5000 UNITS SC ×2 (10:06→20:04)
[2024-03-07] MEDS: TOPROL XL 25 MG PO (10:06)
[2024-03-07] MEDS: DIOVAN 160 MG PO (10:06)
[2024-03-07] MEDS: ULTRAM 50 MG PO (10:19)
--- NOTE | 2024-03-07 11:35 | W.PN.HOSP.TC ---
Today's Communication/Plan
-
SNF vs. VN
trend cbc
anemia panel
medically stable. await placement
Assessment / Plan
Assessment / Plan
Mechanical fall leading to below fractures
Hx of falls with fracture
# Comminuted fracture of the proximal humerus involving surgical neck
#Questionable nondisplaced fracture of the right clavicle middle third
-Consult orthopedics because the humerus fracture is involving the surgical neck. Continue with the sling. No plan for surgical intervention
-cw Tylenol, tramadol. Required IV Dilaudid for pain 03/04 Monitor for ongoing need
-cw PT/OT
# Mildly displaced right superior/inferior pubic rami fractures
-cw Pain control
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
Paroxysmal atrial fibrillation
-Not on anticoagulation likely due to multiple falls and fractures.
-Continue amiodarone
-Metoprolol 25mg daily
Chronic HFpEF -clinically seems compensated . LE edema noted which he says is chronic. Not on diuretics. Follow wt and for symptoms.
Aortic stenosis status post bioprosthetic AVR - no SOB or CP .
Essential hypertension
-Continue valsartan
Anemia
-check iron stores and b12 and folate. no luminal bleedig noted.
Chronic thrombocytopenia
-trend platelet for now. Improved.
Prostate cancer
Full code
DVT prophylaxis�heparin
d/w with spouse at bedside and looking to SNF options vs. Home VN.
Dispo-await placement. medically stable.
Anticipated Discharge: Today
Subjective/Interval History
-
Date of Service: March 07, 2024
tolerating diet
remains with pain with severe activity
Objective Data
-
Labs:
Laboratory Results
03/07/24
04:38
WBC 5.5
Hgb 9.0 L
Hct 30.2 L
Plt Count 117 L
Vital Signs:
Vital Signs
Temp Pulse Resp BP Pulse Ox
97.6 F 61 16 157/72 94
03/07/24 07:30 03/07/24 07:30 03/07/24 07:30 03/07/24 07:30 03/07/24 07:30
I&O
03/06/24 03/07/24 03/08/24
06:59 06:59 06:59
Intake Total 600 / 600 840 / 840
Output Total 400 / 400 300 / 300 125 / 125
Balance 200 / 200 540 / 540 -125 / -125
Physical Exam
-
General: No Apparent Distress and Conversant; Negative Slurred Speech
HEENT: Moist Mucous Membranes
Respiratory: Clear to Auscultation (Anteriorly) and Non Labored Respirations; Negative Accessory Resp Muscle Use
Cardiac: Regular Rhythm and S1/S2
GI: Soft, Nontender, Nondistended and Normal Bowel Sounds
Musculoskeletal: Edema, Right Lower Extrem, Edema, Left Lower Extrem (1+ BL . Chronic per pt) and Other (RUE in sling )
Neuro: AO x 3
Psych: Calm
Data Reviewed
-
Total Time Spent with Patient (in minutes): 55
[2024-03-07 11:40] VITALS: BP 124/58; PULSE 61; O2SAT 92
[2024-03-07 11:42] VITALS: BP 124/58; PULSE 60; O2SAT 92
[2024-03-07 14:25] LABS: Iron 42 ug/dl (49-181)
[2024-03-07 14:35] LABS: Percent Saturation 15 % (20-50); Total Iron Binding Capacity 272 ug/dl (261-462)
[2024-03-07 15:40] VITALS: BP 146/68
[2024-03-07 16:55] LABS: Ferritin 41.9 ng/ml (17.9-464.0)
[2024-03-07 17:26] LABS: Vitamin B12 349 pg/ml (239-931)
[2024-03-07 23:24] VITALS: BP 170/71
--- NOTE | 2024-03-07 23:30 | PTCARENOTE ---
Notified GALVANOMETER ASSEMBLER Pt's b/p was 170/71 (HR 61) at 23:24. GALVANOMETER ASSEMBLER did not wamt to treat b/p unless sys was greater than 180 (manually)
[2024-03-08 05:49] VITALS: BMI 28.2
[2024-03-08 05:57] LABS: % Basophils 1.1 % (0-2); % Eosinophils 3.9 % (0-6); % Immature Granulocytes 0.7 % (0-0.5); % Lymphocytes 19.2 % (20.5-51.1); % Neutrophils 63.1 % (42.2-75.2); Absolute Basophils 0.1 10^3/uL (0-0.2); Absolute Eosinophils 0.2 10^3/uL (0-0.7); Absolute Monocytes 0.7 10^3/uL (0.1-0.6); Absolute Neutrophils 3.4 10^3/uL (1.4-6.5); Hemoglobin 8.9 g/dL (13.0-18.0); Mean Corp Hgb Conc. 30.7 g/dL (33.0-37.0); Mean Corpuscular Hgb 27.7 pg (27.0-31.0); Mean Corpuscular Volume 90.3 fL (80.0-94.0); Nucleated Red Blood Cells % 0 % (-); Platelet Count 123 10^3/uL (130-400); Red Blood Cell Count 3.21 10^6/uL (4.70-6.10); Red Cell Dist. Width 17.7 % (11.5-14.5); White Blood Cell Count 5.4 10^3/uL (4.8-10.8)
[2024-03-08 06:17] LABS: Blood Urea Nitrogen 41 mg/dl (9-20); Calcium 7.8 mg/dl (8.4-10.2); Carbon Dioxide 30 mmol/L (22-30); Chloride 110 mmol/L (98-107); Estimated Creatinine Clearance 76 ml/min; Glucose 90 mg/dl (70-99); Potassium 4.4 mmol/L (3.5-5.1); Sodium 143 mmol/L (135-145); eGFR > 60.00
[2024-03-08 06:24] LABS: NT-proBNP 4600 pg/ml
[2024-03-08 07:50] VITALS: BP 133/70
[2024-03-08] MEDS: HEPARIN 5000 UNITS SC ×2 (09:47→20:19)
[2024-03-08] MEDS: DIOVAN 160 MG PO (09:47)
[2024-03-08] MEDS: VITAMIN B-12 1000 MCG PO (09:49)
[2024-03-08] MEDS: TOPROL XL 25 MG PO (09:49)
[2024-03-08] MEDS: PACERONE 200 MG PO (10:26)
--- NOTE | 2024-03-08 11:05 | W.PN.HOSP.TC ---
Today's Communication/Plan
-
bronchildators
trend cbc
await placement
bowel regimen
Assessment / Plan
Assessment / Plan
Mechanical fall leading to below fractures
Hx of falls with fracture
# Comminuted fracture of the proximal humerus involving surgical neck
#Questionable nondisplaced fracture of the right clavicle middle third
-Consult orthopedics because the humerus fracture is involving the surgical neck. Continue with the sling. No plan for surgical intervention
-cw Tylenol, tramadol. Required IV Dilaudid for pain 03/04 Monitor for ongoing need
-cw PT/OT
# Mildly displaced right superior/inferior pubic rami fractures
-cw Pain control
# Cough likely secondary bronchitis bronchiolitis
-Bronchodilator. Patient afebrile.
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
Paroxysmal atrial fibrillation
-Not on anticoagulation likely due to multiple falls and fractures.
-Continue amiodarone 200 mg 3 times daily weekly
-Metoprolol 25mg daily
-Follows with public information coordinator at [facility]
Chronic HFpEF -clinically seems compensated . LE edema noted which he says is chronic. Not on diuretics. Follow wt and for symptoms. proBNP noted however clinically euvolemic.
Aortic stenosis status post bioprosthetic AVR - no SOB or CP .
Essential hypertension
-Continue valsartan. BP 128/74
Anemia
-Started B12 supplementation with IV iron while here.
Chronic thrombocytopenia
-trend platelet for now. Improved.
Prostate cancer
Full code
DVT prophylaxis�heparin
d/w with spouse at bedside on a daily basis. looking to SNF options vs. Home VN.
d/w with CM -await snf responses.
Dispo-await placement. medically stable.
Anticipated Discharge: Today
Subjective/Interval History
-
Date of Service: March 08, 2024
no cough this am so far
had bm last night documented
Objective Data
-
Labs:
Laboratory Results
03/08/24
04:23
WBC 5.4
Hgb 8.9 L
Hct 29.0 L
Plt Count 123 L
Sodium 143
Potassium 4.4
Chloride 110 H
Carbon Dioxide 30
BUN 41 H
Creatinine 0.9
Glucose 90
Calcium 7.8 L
Vital Signs:
Vital Signs
Temp Pulse Resp BP Pulse Ox
98.0 F 61 12 128/74 96
03/08/24 07:50 03/08/24 10:26 03/08/24 07:50 03/08/24 10:26 03/08/24 09:45
I&O
03/07/24 03/08/24 03/09/24
06:59 06:59 06:59
Intake Total 840 / 840 600 / 600
Output Total 300 / 300 500 / 500
Balance 540 / 540 100 / 100
Physical Exam
-
General: No Apparent Distress and Conversant; Negative Slurred Speech
HEENT: Moist Mucous Membranes
Respiratory: Clear to Auscultation (Anteriorly) and Non Labored Respirations; Negative Wheezes, Rales or Accessory Resp Muscle Use
Cardiac: Regular Rhythm and S1/S2
GI: Soft, Nontender, Nondistended and Normal Bowel Sounds
Musculoskeletal: Edema, Right Lower Extrem (trace ), Edema, Left Lower Extrem (Chronic per pt) and Other (RUE in sling )
Neuro: Awake, Alert, Oriented, AO x 3 and No Motor Deficits; Negative Slurred Speech or Facial Droop
Psych: Calm
--- NOTE | 2024-03-08 11:33 | PN.CDI ---
CDI
- -
CDI:
Physician Documentation Request
Admit Date: 03/06/24 11:40
Dear Doctor Lizzy,
Patient admitted with fractures.
H&P, 'He was trying to get up and grab his walker and he lost balance and fell onto his right side.'
03/08 PN, 'Comminuted fracture of the proximal humerus involving surgical neck....displaced right superior/inferior pubic rami fractures....Mechanical fall. '
03/03 Right hip x-ray, 'Diffuse demineralization.'
Please provide in your note the likely etiology/ etiologies of the documented fracture:
Multifactorial due to low level mechanical fall and age-related osteoporosis
Low level mechanical fall
Other
Use of terms such as suspected, likely, concern for, or probable (associated with a specific diagnosis that is being evaluated, monitored, or treated as if it exists) are acceptable and can be coded in the inpatient setting, when documented at the
time of discharge.
Thank you,
Seema BRAND,RN,CCDS
CDI Specialist
Available via [place] text
Please use your independent medical judgment in providing your response.
[2024-03-08] MEDS: DUONEB 3 ML INH ×3 (11:39→19:53)
[2024-03-08] MEDS: FLUSH (NSS) 1 FLUSH IV (13:26)
[2024-03-08] MEDS: FERRLECIT 110 MG IV (13:26)
[2024-03-08] MEDS: ULTRAM 50 MG PO (14:33)
[2024-03-08 15:40] VITALS: BP 126/61
[2024-03-08 16:12] VITALS: BP 132/62; PULSE 61; O2SAT 93
[2024-03-08 16:14] VITALS: BP 132/62; PULSE 61; O2SAT 95
[2024-03-08] MEDS: SENOKOT-S 1 TABLET PO (20:19)
[2024-03-08 23:10] VITALS: BP 140/65
[2024-03-09] MEDS: ULTRAM 50 MG PO (00:40)
[2024-03-09 06:00] VITALS: BMI 28.1
[2024-03-09 07:04] LABS: % Basophils 0.9 % (0-2); % Eosinophils 1.9 % (0-6); % Immature Granulocytes 0.9 % (0-0.5); % Lymphocytes 17.5 % (20.5-51.1); % Monocytes 10.1 % (1.7-9.3); % Neutrophils 68.7 % (42.2-75.2); Absolute Basophils 0.1 10^3/uL (0-0.2); Absolute Eosinophils 0.1 10^3/uL (0-0.7); Absolute Immature Granulocytes 0.1 10^3/uL (0-0.05); Absolute Monocytes 0.6 10^3/uL (0.1-0.6); Hematocrit 28.9 % (39.0-52.0); Hemoglobin 8.8 g/dL (13.0-18.0); Mean Corp Hgb Conc. 30.4 g/dL (33.0-37.0); Mean Corpuscular Hgb 27.3 pg (27.0-31.0); Mean Corpuscular Volume 89.8 fL (80.0-94.0); Nucleated Red Blood Cells % 0 % (-); Platelet Count 136 10^3/uL (130-400); Red Blood Cell Count 3.22 10^6/uL (4.70-6.10); Red Cell Dist. Width 17.7 % (11.5-14.5); White Blood Cell Count 5.8 10^3/uL (4.8-10.8)
[2024-03-09 07:12] VITALS: BP 152/70
[2024-03-09] MEDS: DUONEB 3 ML INH ×4 (07:17→20:32)
[2024-03-09] MEDS: TOPROL XL 25 MG PO (09:01)
[2024-03-09] MEDS: DIOVAN 160 MG PO (09:01)
[2024-03-09] MEDS: HEPARIN 5000 UNITS SC ×2 (09:01→20:29)
[2024-03-09] MEDS: SENOKOT-S 1 TABLET PO (09:01)
[2024-03-09] MEDS: VITAMIN B-12 1000 MCG PO (09:01)
[2024-03-09] MEDS: MIRALAX 17 GRAMS PO (09:03)
--- NOTE | 2024-03-09 11:55 | W.PN.HOSP.TC ---
Today's Communication/Plan
-
await placement
bowel regimen
Assessment / Plan
Assessment / Plan
Mechanical fall leading to below fractures
Hx of falls with fracture
# Comminuted fracture of the proximal humerus involving surgical neck
#Questionable nondisplaced fracture of the right clavicle middle third
-Consult orthopedics because the humerus fracture is involving the surgical neck. Continue with the sling. No plan for surgical intervention
-cw Tylenol, tramadol. Required IV Dilaudid for pain 03/04 Monitor for ongoing need
-cw PT/OT-recs SNF.
# Mildly displaced right superior/inferior pubic rami fractures
-cw Pain control
# Cough likely secondary bronchitis bronchiolitis
-Bronchodilator. Patient afebrile.
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
Paroxysmal atrial fibrillation
-Not on anticoagulation likely due to multiple falls and fractures.
-Continue amiodarone 200 mg 3 times daily weekly
-Metoprolol 25mg daily
-Follows with [facility] at [facility]
Chronic HFpEF -clinically seems compensated . LE edema noted which he says is chronic. Not on diuretics. Follow wt and for symptoms. proBNP noted however clinically euvolemic.
Aortic stenosis status post bioprosthetic AVR - no SOB or CP .
Essential hypertension
-Continue valsartan.
Anemia
-Started B12 supplementation with IV iron while here.
Chronic thrombocytopenia
-trend platelet for now. Improved.
Prostate cancer
Full code
DVT prophylaxis�heparin
d/w with spouse at bedside on a daily basis. looking to SNF options vs. Home VN.
d/w with CM -await snf responses.
Dispo-await placement. medically stable.
Anticipated Discharge: Today
Subjective/Interval History
-
Date of Service: March 09, 2024
states of severe pain after working with PT yesterday
improvement in cough
had small bm yesterday
Objective Data
-
Labs:
Laboratory Results
03/09/24
04:34
WBC 5.8
Hgb 8.8 L
Hct 28.9 L
Plt Count 136
Vital Signs:
Vital Signs
Temp Pulse Resp BP Pulse Ox
98.0 F 62 16 152/70 94
03/09/24 07:12 03/09/24 09:01 03/09/24 07:20 03/09/24 09:01 03/09/24 09:00
I&O
03/08/24 03/09/24 03/10/24
06:59 06:59 06:59
Intake Total 600 / 600 350 / 350
Output Total 500 / 500 100 / 100
Balance 100 / 100 250 / 250
Physical Exam
-
General: No Apparent Distress and Conversant; Negative Slurred Speech
HEENT: Moist Mucous Membranes
Respiratory: Clear to Auscultation (Anteriorly) and Non Labored Respirations; Negative Wheezes, Rales or Accessory Resp Muscle Use
Cardiac: Regular Rhythm and S1/S2
GI: Soft, Nontender, Nondistended and Normal Bowel Sounds
Musculoskeletal: Edema, Right Lower Extrem (trace ), Edema, Left Lower Extrem (Chronic per pt) and Other (RUE in sling )
Neuro: Awake, Alert, Oriented, AO x 3 and No Motor Deficits; Negative Slurred Speech or Facial Droop
Psych: Calm
--- NOTE | 2024-03-09 13:08 | CM ---
Met with patient and .
Discussed bed available at [facility] -does not want.
Called Jen at [facility] - she will get back to if regarding bed available
Patient now stating wants to take patient home. Advised PT rec SNF
Spoke with hospitalist regarding this & he will speak with .
PLAN: SNF, pending bed availability
[2024-03-09] MEDS: FERRLECIT 110 MG IV (13:55)
[2024-03-09] MEDS: FLUSH (NSS) 1 FLUSH IV (13:56)
[2024-03-09 14:54] VITALS: BP 132/63; PULSE 68; O2SAT 93
[2024-03-09 14:55] VITALS: BP 132/63; PULSE 61; O2SAT 93
[2024-03-09 15:13] VITALS: BP 119/55
[2024-03-09] MEDS: SENOKOT-S PO (20:28)
[2024-03-09 23:52] VITALS: BP 142/69
[2024-03-10 06:00] VITALS: BMI 27.9
[2024-03-10 07:23] VITALS: BP 155/75
[2024-03-10 07:54] LABS: % Basophils 0.9 % (0-2); % Eosinophils 4.3 % (0-6); % Lymphocytes 17.2 % (20.5-51.1); % Monocytes 9.7 % (1.7-9.3); % Neutrophils 66.9 % (42.2-75.2); Absolute Basophils 0.1 10^3/uL (0-0.2); Absolute Eosinophils 0.3 10^3/uL (0-0.7); Absolute Immature Granulocytes 0.1 10^3/uL (0-0.05); Absolute Monocytes 0.6 10^3/uL (0.1-0.6); Absolute Neutrophils 3.9 10^3/uL (1.4-6.5); Hematocrit 27.7 % (39.0-52.0); Hemoglobin 8.9 g/dL (13.0-18.0); Mean Corp Hgb Conc. 32.1 g/dL (33.0-37.0); Mean Corpuscular Hgb 28.5 pg (27.0-31.0); Mean Corpuscular Volume 88.8 fL (80.0-94.0); Mean Platelet Volume 11.6 fL (7.4-10.4); Nucleated Red Blood Cells % 0 % (-); Platelet Count 138 10^3/uL (130-400); Red Blood Cell Count 3.12 10^6/uL (4.70-6.10); Red Cell Dist. Width 17.7 % (11.5-14.5); White Blood Cell Count 5.9 10^3/uL (4.8-10.8)
[2024-03-10] MEDS: DUONEB 3 ML INH ×3 (08:05→17:56)
[2024-03-10] MEDS: MIRALAX PO ×2 (08:30→08:48)
[2024-03-10] MEDS: SENOKOT-S PO ×3 (08:30→20:26)
[2024-03-10] MEDS: DIOVAN 160 MG PO (08:49)
[2024-03-10] MEDS: TOPROL XL 25 MG PO (08:49)
[2024-03-10] MEDS: HEPARIN 5000 UNITS SC ×2 (08:49→20:26)
[2024-03-10] MEDS: VITAMIN B-12 1000 MCG PO (08:49)
[2024-03-10] MEDS: TYLENOL 650 MG PO (11:24)
[2024-03-10] MEDS: DUONEB INH (11:35)
--- NOTE | 2024-03-10 13:09 | W.PN.HOSP.TC ---
Today's Communication/Plan
-
await placement
medically stable
await procal/bmp
Assessment / Plan
Assessment / Plan
Mechanical fall leading to below fractures
Hx of falls with fracture
# Comminuted fracture of the proximal humerus involving surgical neck
#Questionable nondisplaced fracture of the right clavicle middle third
# Fractures multifactorial due to mechanical fall and age-related osteopenia versus osteoporosis
-Consult orthopedics because the humerus fracture is involving the surgical neck. Continue with the sling. No plan for surgical intervention
-cw Tylenol, tramadol. Required IV Dilaudid for pain 03/04 Monitor for ongoing need
-cw PT/OT-recs SNF.
# Mildly displaced right superior/inferior pubic rami fractures
-cw Pain control
# Cough likely secondary bronchitis bronchiolitis and atelectasis
-Bronchodilator. Patient remains afebrile. Patient without any leukocytosis.
-Repeat two-view chest x-ray consolidation versus atelectasis. Check procalcitonin. If positive will start antibiotics otherwise continue with incentive spirometry.
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
Paroxysmal atrial fibrillation
-Not on anticoagulation likely due to multiple falls and fractures.
-Continue amiodarone 200 mg 3 times daily weekly
-Metoprolol 25mg daily
-Follows with household refrigeration mechanic at [facility]
Chronic HFpEF -clinically seems compensated . LE edema noted which he says is chronic. Not on diuretics. Follow wt and for symptoms. proBNP noted however clinically euvolemic.
Aortic stenosis status post bioprosthetic AVR - no SOB or CP .
Essential hypertension
-Continue valsartan.
Anemia
-Started B12 supplementation with IV iron while here.
Chronic thrombocytopenia
-trend platelet for now. Improved.
Prostate cancer
Full code
DVT prophylaxis�heparin
d/w with spouse at bedside on a daily basis. looking at SNF options.
d/w with -await snf responses. d/w with cm on daily basis
Dispo-await placement. medically stable.
Anticipated Discharge: > 48 hours
Subjective/Interval History
-
Date of Service: March 10, 2024
states of coughing -intermittent with phelgm
no fevers
pain controlled at times
tolerating diet
Objective Data
-
Labs:
Laboratory Results
03/10/24 03/10/24
06:44 12:25
WBC 5.9
Hgb 8.9 L
Hct 27.7 L
Plt Count 138
Sodium Pending
Potassium Pending
Chloride Pending
Carbon Dioxide Pending
BUN Pending
Creatinine Pending
Glucose Pending
Calcium Pending
Vital Signs:
Vital Signs
Temp Pulse Resp BP Pulse Ox
98.0 F 70 18 155/75 98
03/10/24 07:23 03/10/24 08:16 03/10/24 08:16 03/10/24 07:23 03/10/24 08:16
I&O
03/09/24 03/10/24 03/11/24
06:59 06:59 06:59
Intake Total 350 / 350 1430 / 1430
Output Total 100 / 100 475 / 475
Balance 250 / 250 955 / 955
Data Reviewed
-
Total Time Spent with Patient (in minutes): 55
[2024-03-10 14:14] LABS: Blood Urea Nitrogen 42 mg/dl (9-20); Calcium 8.1 mg/dl (8.4-10.2); Carbon Dioxide 25 mmol/L (22-30); Chloride 109 mmol/L (98-107); Estimated Creatinine Clearance 76 ml/min; Glucose 100 mg/dl (70-99); Potassium 4.4 mmol/L (3.5-5.1); Sodium 142 mmol/L (135-145); eGFR > 60.00
[2024-03-10 14:25] LABS: Procalcitonin < 0.05 ng/ml (0.0-0.25)
[2024-03-10] MEDS: FERRLECIT 110 MG IV (14:25)
[2024-03-10] MEDS: ULTRAM 12.5 MG PO ×2 (14:46→23:55)
--- NOTE | 2024-03-10 15:28 | PTOTSP ---
Speech Pathology
Follow Up
New concerns for severe LLL PNA vs. asymmetric atelectasis. Attempted PO trials of thin liquid, mildly thick liquid, and moderately thick liquid this Cough with all trials of thin liquid 2/2. No overt s/s of aspiration or penetration with mildly
thick liquid or moderately thick liquids. Recommend upgrading liquids to mildly thick and VSE as an OP to determine safest and least restrictive diet level. Patient/spouse verbalized agreement and understanding to POC.
Recommendations:
1. Regular solids, mildly thick liquids (IDDSI 2) via cup sips
2. Meds whole in puree or with mildly thick liquid
3. Aspiration & reflux precautions: HOB upright as much as pt can tolerate during PO intake and for 60 minutes after PO intake; slow intake rate; alternate solids and liquids.
4. MORTGAGE MANAGER to f/u re: diet tolerance; trial diet upgrades; determine if pt would benefit from an instrumental swallow study.
5. Pt would benefit from MORTGAGE MANAGER services upon discharge to determine when the pt can be liberalized back to his baseline diet during the course of his rehabilitation from his acute injuries.
[2024-03-10 15:50] VITALS: BP 124/62
[2024-03-10 23:35] VITALS: BP 144/75
[2024-03-11 05:17] LABS: % Basophils 0.7 % (0-2); % Eosinophils 4.2 % (0-6); % Immature Granulocytes 1.3 % (0-0.5); % Lymphocytes 15.7 % (20.5-51.1); % Monocytes 8.1 % (1.7-9.3); Absolute Basophils 0.1 10^3/uL (0-0.2); Absolute Eosinophils 0.3 10^3/uL (0-0.7); Absolute Immature Granulocytes 0.1 10^3/uL (0-0.05); Absolute Lymphocytes 1.1 10^3/uL (1.2-3.4); Absolute Monocytes 0.6 10^3/uL (0.1-0.6); Absolute Neutrophils 4.9 10^3/uL (1.4-6.5); Hematocrit 29.6 % (39.0-52.0); Mean Corp Hgb Conc. 30.4 g/dL (33.0-37.0); Mean Corpuscular Hgb 27.4 pg (27.0-31.0); Mean Corpuscular Volume 90.2 fL (80.0-94.0); Nucleated Red Blood Cells % 0 % (-); Platelet Count 161 10^3/uL (130-400); Red Blood Cell Count 3.28 10^6/uL (4.70-6.10); Red Cell Dist. Width 17.8 % (11.5-14.5); White Blood Cell Count 6.9 10^3/uL (4.8-10.8)
[2024-03-11 06:00] VITALS: BMI 28.1
[2024-03-11 07:59] VITALS: BP 155/78
[2024-03-11] MEDS: DUONEB 3 ML INH ×4 (08:28→20:53)
[2024-03-11] MEDS: ULTRAM 12.5 MG PO (09:56)
[2024-03-11] MEDS: SENOKOT-S PO ×2 (09:58→10:14)
[2024-03-11] MEDS: DIOVAN 160 MG PO (09:59)
[2024-03-11] MEDS: VITAMIN B-12 1000 MCG PO (10:00)
[2024-03-11] MEDS: TOPROL XL 25 MG PO (10:00)
[2024-03-11] MEDS: HEPARIN 5000 UNITS SC ×2 (10:03→21:09)
[2024-03-11] MEDS: MIRALAX PO (10:05)
--- NOTE | 2024-03-11 12:11 | W.PN.HOSP.TC ---
Today's Communication/Plan
-
await placement
Assessment / Plan
Assessment / Plan
Mechanical fall leading to below fractures
Hx of falls with fracture
# Comminuted fracture of the proximal humerus involving surgical neck
#Questionable nondisplaced fracture of the right clavicle middle third
# Fractures multifactorial due to mechanical fall and age-related osteopenia versus osteoporosis
-Consult orthopedics because the humerus fracture is involving the surgical neck. Continue with the sling. No plan for surgical intervention
-cw Tylenol standing, tramadol. Required IV Dilaudid for pain 03/04 Monitor for ongoing need
-cw PT/OT-recs SNF.
# Mildly displaced right superior/inferior pubic rami fractures
-cw Pain control
# Cough likely secondary bronchitis bronchiolitis and atelectasis
-Bronchodilator. Patient remains afebrile. Patient without any leukocytosis.
-Repeat two-view chest x-ray consolidation versus atelectasis. Procalcitonin negative. Improvement in cough. Patient with no leukocytosis. Patient remains afebrile. His phosphorus cussed with patient and family and they agreed with the planning.
# Delirium
-overnight. AOX3 currently. mentation back to baseline. Likely 2/2 prolonged hospitalization.
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
Paroxysmal atrial fibrillation
-Not on anticoagulation likely due to multiple falls and fractures.
-Continue amiodarone 200 mg 3 times daily weekly
-Metoprolol 25mg daily
-Follows with corporate sales manager at [facility]
Chronic HFpEF -clinically seems compensated . LE edema noted which he says is chronic. Not on diuretics. Follow wt and for symptoms. proBNP noted however clinically euvolemic.
Aortic stenosis status post bioprosthetic AVR - no SOB or CP .
Essential hypertension
-Continue valsartan.
Anemia
-Started B12 supplementation with IV iron while here.
-Hgb at 9. Complete 5d IV iron course.
Chronic thrombocytopenia
-trend platelet for now. Improved.
Prostate cancer
Full code
DVT prophylaxis�heparin
Discussed with spouse at bedside on daily basis for prolonged period of time and all questions were answered.
d/w with CM -await snf responses. d/w with cm on daily basis. Per CM-no accepting SNF once again per discussion on 03/11/24
Dispo-await placement. medically stable.
Anticipated Discharge: Today
Subjective/Interval History
-
Date of Service: March 11, 2024
States decrease in cough
overnight was mildly confused
did not sleep much
Objective Data
-
Labs:
Laboratory Results
03/11/24
04:14
WBC 6.9
Hgb 9.0 L
Hct 29.6 L
Plt Count 161
Vital Signs:
Vital Signs
Temp Pulse Resp BP Pulse Ox
97.6 F 71 16 155/78 97
03/11/24 07:59 03/11/24 08:32 03/11/24 08:32 03/11/24 07:59 03/11/24 12:04
I&O
03/10/24 03/11/24 03/12/24
06:59 06:59 06:59
Intake Total 1430 / 1430 720 / 720
Output Total 475 / 475 900 / 900
Balance 955 / 955 -180 / -180
Physical Exam
-
General: No Apparent Distress and Conversant; Negative Slurred Speech
HEENT: Moist Mucous Membranes
Respiratory: Clear to Auscultation (Anteriorly) and Non Labored Respirations; Negative Wheezes, Rales or Accessory Resp Muscle Use
Cardiac: Regular Rhythm and S1/S2
GI: Soft, Nontender, Nondistended and Normal Bowel Sounds
Musculoskeletal: Edema, Right Lower Extrem (trace ), Edema, Left Lower Extrem (Chronic per pt) and Other (RUE in sling )
Neuro: Awake, Alert, Oriented, AO x 3 and No Motor Deficits; Negative Slurred Speech or Facial Droop
Psych: Calm
[2024-03-11 15:09] VITALS: BP 132/78
[2024-03-11 16:16] VITALS: BP 126/65
[2024-03-11] MEDS: FERRLECIT 110 MG IV (16:34)
[2024-03-11] MEDS: TYLENOL 1000 MG PO ×2 (16:35→21:10)
[2024-03-11] MEDS: SENOKOT-S 1 TABLET PO (21:10)
[2024-03-11 23:08] VITALS: BP 138/70
[2024-03-12 05:30] LABS: % Basophils 0.6 % (0-2); % Eosinophils 4.9 % (0-6); % Immature Granulocytes 0.8 % (0-0.5); % Monocytes 8.3 % (1.7-9.3); % Neutrophils 66.4 % (42.2-75.2); Absolute Eosinophils 0.3 10^3/uL (0-0.7); Absolute Immature Granulocytes 0.1 10^3/uL (0-0.05); Absolute Lymphocytes 1.2 10^3/uL (1.2-3.4); Absolute Monocytes 0.5 10^3/uL (0.1-0.6); Absolute Neutrophils 4.1 10^3/uL (1.4-6.5); Hematocrit 29.6 % (39.0-52.0); Mean Corp Hgb Conc. 30.4 g/dL (33.0-37.0); Mean Corpuscular Hgb 27.6 pg (27.0-31.0); Mean Corpuscular Volume 90.8 fL (80.0-94.0); Mean Platelet Volume 11.7 fL (7.4-10.4); Nucleated Red Blood Cells % 0 % (-); Platelet Count 165 10^3/uL (130-400); Red Blood Cell Count 3.26 10^6/uL (4.70-6.10); White Blood Cell Count 6.2 10^3/uL (4.8-10.8)
[2024-03-12 06:00] VITALS: BMI 28.2
[2024-03-12 07:10] VITALS: BP 155/69
[2024-03-12] MEDS: DUONEB 3 ML INH ×4 (08:09→20:27)
[2024-03-12] MEDS: HEPARIN 5000 UNITS SC (09:00)
[2024-03-12] MEDS: DIOVAN 160 MG PO (09:01)
[2024-03-12] MEDS: TOPROL XL 25 MG PO (09:01)
[2024-03-12] MEDS: SENOKOT-S 1 TABLET PO ×2 (09:01→20:12)
[2024-03-12] MEDS: VITAMIN B-12 1000 MCG PO (09:01)
[2024-03-12] MEDS: TYLENOL 1000 MG PO ×3 (09:01→22:31)
[2024-03-12] MEDS: MIRALAX PO (09:30)
--- NOTE | 2024-03-12 12:23 | CM ---
Addendum entered by Cleo Coleman 03/13/24 10:54:
Pt is cleared for discharge today to [facility]. Transport arranged for 12:30. Pt's is concerned about bleeding s/p catheter and asking to see the physician before he leaves. TT to Dr. Shukla to make him aware.
[facility] updated with most recent clinicals.
Plan: Transfer to [facility] today at 12:30
[facility] Report: [phone]
[facility]
Addendum entered by Samantha Hernandez 03/12/24 16:13:
No beds at [facility] - family aware
Pt/family agree with [facility] - spoke wt bedside
Given IMM
Transport/Medical necessity forms on chart
Plan - [facility] tomorrow
Original Note:
Chart reviewed
Updated pt/ at bedside - [facility] has bed available tomorrow and can accept. Family also interested in [facility] - TT sent to Yady at [facility] regarding bed availability. Awaiting determination
[2024-03-12] MEDS: FERRLECIT 110 MG IV (14:25)
[2024-03-12] MEDS: FLUSH (NSS) 1 FLUSH IV (14:26)
--- NOTE | 2024-03-12 14:31 | W.PN.HOSP.TC ---
Today's Communication/Plan
-
see note
for d/c tomorrow
Assessment / Plan
Assessment / Plan
# Comminuted fracture of the proximal humerus involving surgical neck
# Questionable nondisplaced fracture of the right clavicle middle third
# Fractures multifactorial due to mechanical fall and age-related osteopenia versus osteoporosis
# Mechanical fall
-Orthopedic surgery evaluated and no indication for surgery for humerus fracture
-cw Tylenol standing, tramadol. Required IV Dilaudid for pain 03/04 Monitor for ongoing need
-PT OT recommended SNF, patient planned to be transferred to [facility] tomorrow
# Mildly displaced right superior/inferior pubic rami fractures
-cw Pain control
# Urinary retention
Minimal penile urethral bleeding from traumatic catheterization
Required straight catheterization last night and noted to have some drops of blood on tip of penile urethra
Repeat bladder scan ruled out any retention, discussed with RN to continue monitoring
Flomax and IV fluid bolus of 500 mL ordered
# Cough likely secondary bronchitis bronchiolitis and atelectasis
-Bronchodilator. Patient remains afebrile. Patient without any leukocytosis.
-Repeat two-view chest x-ray consolidation versus atelectasis. Procalcitonin negative.
-Continue IS
# Delirium
-overnight. AOX3 currently. mentation back to baseline. Likely 2/2 prolonged hospitalization.
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
# Paroxysmal atrial fibrillation
-Not on anticoagulation likely due to multiple falls and fractures.
-Continue amiodarone 200 mg 3 times daily weekly
-Metoprolol 25mg daily
-Follows with program associate at [facility]
# Chronic HFpEF
-clinically seems compensated . LE edema noted which he says is chronic. Not on diuretics.
-Follow wt and for symptoms. proBNP noted however clinically euvolemic.
#Aortic stenosis status post bioprosthetic AVR - no SOB or CP .
# Essential hypertension
-Continue valsartan.
#Chronic Anemia
-Started B12 supplementation with IV iron while here.
-Hgb at 9. Complete 5d IV iron course.
# Chronic thrombocytopenia
-trend platelet for now. Improved.
# Prostate cancer
Full code
DVT prophylaxis�heparin
Anticipated Discharge: Within 24 hours
Subjective/Interval History
-
Date of Service: March 12, 2024
Denies of having any excessive pain
Minimal penile urethral spotting with blood
no other issues reported
Objective Data
-
Labs:
Laboratory Results
03/12/24
04:28
WBC 6.2
Hgb 9.0 L
Hct 29.6 L
Plt Count 165
Vital Signs:
Vital Signs
Temp Pulse Resp BP Pulse Ox
97.4 F 61 14 155/69 95
03/12/24 07:10 03/12/24 07:10 03/12/24 07:10 03/12/24 07:10 03/12/24 09:00
I&O
03/11/24 03/12/24 03/13/24
06:59 06:59 06:59
Intake Total 720 / 720 1130 / 1130
Output Total 900 / 900 920 / 920
Balance -180 / -180 210 / 210
Review of Systems
-
Respiratory: Reports No Symptoms
Cardiac: Reports No Symptoms
Abdomen/GI: Reports No Symptoms
Physical Exam
-
HEENT: Negative Oxygen
Respiratory: Clear to Auscultation
Cardiac: Regular Rhythm and S1/S2; Negative Murmur
GI: Soft, Nontender and Nondistended
Musculoskeletal: Other (RUE in sling )
Neuro: Awake, Alert, Oriented, AO x 3 and No Motor Deficits
Psych: Calm
[2024-03-12 15:08] VITALS: BP 134/61; PULSE 63; O2SAT 94
[2024-03-12 15:29] VITALS: BP 134/61; PULSE 63; O2SAT 94
[2024-03-12 15:40] VITALS: BP 111/63
[2024-03-12] MEDS: FLOMAX 0.4 MG PO (16:03)
[2024-03-12] MEDS: LR 500 IV (16:03)
[2024-03-12] MEDS: FEOSOL 325 MG PO (16:30)
[2024-03-12 23:10] VITALS: BP 117/56
--- NOTE | 2024-03-13 02:20 | PTCARENOTE ---
Pt had no urine output. Pt was unable to void. B/S 549, SC 500. Pt tolerated. Dayshift nurse reported pt's noted blood on pt's penis. Nightshift nurse from 03/11 until 03/12 morning reported ralph urine with her SC. I also noted blood on urinal in
pt's room at the beginning of my shift. Pt passed a blood clot when SC, urine ralph again.
[2024-03-13 06:41] LABS: % Basophils 0.9 % (0-2); % Eosinophils 4.4 % (0-6); % Immature Granulocytes 0.7 % (0-0.5); % Lymphocytes 14.3 % (20.5-51.1); % Monocytes 8.1 % (1.7-9.3); % Neutrophils 71.6 % (42.2-75.2); Absolute Basophils 0.1 10^3/uL (0-0.2); Absolute Eosinophils 0.3 10^3/uL (0-0.7); Absolute Immature Granulocytes 0.1 10^3/uL (0-0.05); Absolute Monocytes 0.6 10^3/uL (0.1-0.6); Hemoglobin 9.5 g/dL (13.0-18.0); Mean Corp Hgb Conc. 30.6 g/dL (33.0-37.0); Mean Corpuscular Hgb 27.8 pg (27.0-31.0); Mean Corpuscular Volume 90.6 fL (80.0-94.0); Mean Platelet Volume 11.2 fL (7.4-10.4); Nucleated Red Blood Cells % 0 % (-); Platelet Count 167 10^3/uL (130-400); Red Blood Cell Count 3.42 10^6/uL (4.70-6.10); Red Cell Dist. Width 18.4 % (11.5-14.5)
[2024-03-13 07:03] VITALS: BP 131/67
[2024-03-13] MEDS: DUONEB 3 ML INH ×2 (07:44→11:24)
[2024-03-13] MEDS: TYLENOL 1000 MG PO (10:51)
[2024-03-13] MEDS: DIOVAN 160 MG PO (10:52)
[2024-03-13] MEDS: FLOMAX 0.4 MG PO (10:52)
[2024-03-13] MEDS: TOPROL XL 25 MG PO (10:52)
[2024-03-13] MEDS: VITAMIN B-12 1000 MCG PO (10:52)
[2024-03-13] MEDS: SENOKOT-S 1 TABLET PO (10:53)
[2024-03-13] MEDS: MIRALAX PO (10:53)
[2024-03-13] MEDS: PACERONE 200 MG PO (10:57)
[2024-03-13 12:22] VITALS: BP 134/65
--- NOTE | 2024-03-13 13:42 | W.PN.HOSP.TC ---
Today's Communication/Plan
-
d/c snf rehab
Assessment / Plan
Assessment / Plan
# Comminuted fracture of the proximal humerus involving surgical neck
# Questionable nondisplaced fracture of the right clavicle middle third
# Fractures multifactorial due to mechanical fall and age-related osteopenia versus osteoporosis
# Mechanical fall
-Orthopedic surgery evaluated and no indication for surgery for humerus fracture
-cw Tylenol standing, tramadol. Required IV Dilaudid for pain 03/04 Monitor for ongoing need
-PT OT recommended SNF, patient planned to be transferred to [facility] tomorrow
# Mildly displaced right superior/inferior pubic rami fractures
-cw Pain control
# Urinary retention -resolved
Hematuria from Traumatic catheterization
-Required straight catheterization last night and noted to have some drops of blood on tip of penile urethra
-Repeat bladder scan ruled out any retention, discussed with RN to continue monitoring
-Flomax and IV fluid bolus of 500 mL ordered
# Cough likely secondary bronchitis bronchiolitis and atelectasis
-Bronchodilator. Patient remains afebrile. Patient without any leukocytosis.
-Repeat two-view chest x-ray consolidation versus atelectasis. Procalcitonin negative.
-Continue IS
# Delirium -resolved
- Likely 2/2 prolonged hospitalization.
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
# Paroxysmal atrial fibrillation
-Not on anticoagulation likely due to multiple falls and fractures.
-Continue amiodarone 200 mg 3 times daily weekly
-Metoprolol 25mg daily
-Follows with application internship at [facility]
# Chronic HFpEF
-clinically seems compensated . LE edema noted which he says is chronic. Not on diuretics.
-Follow wt and for symptoms. proBNP noted however clinically euvolemic.
#Aortic stenosis status post bioprosthetic AVR - no SOB or CP .
# Essential hypertension
-Continue valsartan.
#Chronic Anemia
-Started B12 supplementation with IV iron while here.
-Hgb at 9. Complete 5d IV iron course.
# Chronic thrombocytopenia
-trend platelet for now. Improved.
# Prostate cancer
Full code
DVT prophylaxis�heparin
More than 30 minutes spent in discharge including
Final examination of the patient
Summarizing hospital stay
Instructions for continuing care to all relevant caregivers
Preparation of discharge records, prescriptions, and referral forms
Total time spent (in minutes): 38 mins
Anticipated Discharge: Today
Subjective/Interval History
-
Date of Service: March 13, 2024
no problems overnight
tea colored urin - no clots
Objective Data
-
Labs:
Laboratory Results
03/13/24
05:00
WBC 7.0
Hgb 9.5 L
Hct 31.0 L
Plt Count 167
Vital Signs:
Vital Signs
Temp Pulse Resp BP Pulse Ox
98.0 F 63 18 134/65 94
03/13/24 12:22 03/13/24 12:22 03/13/24 12:22 03/13/24 12:22 03/13/24 12:22
I&O
03/12/24 03/13/24 03/14/24
06:59 06:59 06:59
Intake Total 1130 / 1130 1800 / 1800 300 / 300
Output Total 920 / 920 500 / 500 400 / 400
Balance 210 / 210 1300 / 1300 -100 / -100
Review of Systems
-
Respiratory: Reports No Symptoms
Cardiac: Reports No Symptoms
Abdomen/GI: Reports No Symptoms
Physical Exam
-
HEENT: Negative Oxygen
Respiratory: Clear to Auscultation
Cardiac: Regular Rhythm and S1/S2; Negative Murmur
GI: Soft, Nontender and Nondistended
Musculoskeletal: Other (RUE in sling )
Neuro: Awake, Alert, Oriented, AO x 3 and No Motor Deficits
Psych: Calm
== END 2024-03-13 12:45 | DRG 543 ==
LOC: 2 SOUTH 11:40
PROVIDERS: Hospitalist; Internal Medicine; ADMITTING PHYSICIAN Hospitalist; ATTENDING PHYSICIAN Hospitalist; CONSULT PHYSICIAN Specialist; EMERGENCY PHYSICIAN Emergency Medicine; FAMILY PHYSICIAN Family Medicine
DX: M80.0B1A Age-related osteoporosis with current pathological fracture, right pelvis, initial encounter for fracture (principal); I50.32 Chronic diastolic (congestive) heart failure; S42.201A Unspecified fracture of upper end of right humerus, initial encounter for closed fracture; W01.0XXA Fall on same level from slipping, tripping and stumbling without subsequent striking against object, initial encounter; D49.6 Neoplasm of unspecified behavior of brain; I48.0 Paroxysmal atrial fibrillation; I11.0 Hypertensive heart disease with heart failure; C61 Malignant neoplasm of prostate; D69.6 Thrombocytopenia, unspecified
CPT/HCPCS: 71045; 71046; 71101; 72125; 73030; 73502; 80048; 80053; 82607; 82728; 82746; 83540; 83550; 83880; 84145; 84443; 85025; 85027; 92526; 92610; 93005; 94640; 96374; 96375; 97110; 97162; 97166; 97530; 97535; 97550; 99285; J2916

== ENCOUNTER → 2024-03-16 10:53 | Outpatient (REF) | payer MEDICARE, BC, SELFPAY ==
[2024-03-16 11:58] LABS: % Eosinophils 6.5 % (0-6); % Immature Granulocytes 0.6 % (0-0.5); % Lymphocytes 19.7 % (20.5-51.1); % Monocytes 7.4 % (1.7-9.3); % Neutrophils 64.8 % (42.2-75.2); Absolute Basophils 0.1 10^3/uL (0-0.2); Absolute Eosinophils 0.5 10^3/uL (0-0.7); Absolute Lymphocytes 1.4 10^3/uL (1.2-3.4); Absolute Monocytes 0.5 10^3/uL (0.1-0.6); Absolute Neutrophils 4.6 10^3/uL (1.4-6.5); Hematocrit 31.9 % (39.0-52.0); Hemoglobin 9.5 g/dL (13.0-18.0); Mean Corp Hgb Conc. 29.8 g/dL (33.0-37.0); Mean Corpuscular Hgb 28.3 pg (27.0-31.0); Mean Corpuscular Volume 94.9 fL (80.0-94.0); Mean Platelet Volume 11.7 fL (7.4-10.4); Nucleated Red Blood Cells % 0 % (-); Platelet Count 183 10^3/uL (130-400); Red Blood Cell Count 3.36 10^6/uL (4.70-6.10); Red Cell Dist. Width 18.5 % (11.5-14.5); White Blood Cell Count 7.1 10^3/uL (4.8-10.8)
[2024-03-16 12:04] LABS: ALT (SGPT) < 10 U/L (0-50); AST (SGOT) 20 U/L (17-59); Albumin 2.1 g/dl (3.5-5.0); Alkaline Phosphatase 143 U/L (38-126); Blood Urea Nitrogen 48 mg/dl (9-20); Calcium 7.9 mg/dl (8.4-10.2); Carbon Dioxide 28 mmol/L (22-30); Chloride 113 mmol/L (98-107); Glucose 77 mg/dl (70-99); Magnesium 2.2 mg/dl (1.6-2.3); Potassium 4.1 mmol/L (3.5-5.1); Sodium 142 mmol/L (135-145); Total Bilirubin 0.7 mg/dl (0.2-1.3); Total Protein 4.6 g/dl (6.3-8.2); eGFR > 60.00
== END ==
LOC: OLABWHC 10:53
PROVIDERS: ATTENDING PHYSICIAN Family Medicine
DX: N17.9 Acute kidney failure, unspecified (principal); I10 Essential (primary) hypertension; D50.0 Iron deficiency anemia secondary to blood loss (chronic)
CPT/HCPCS: 36415; 80053; 83735; 85025

== ENCOUNTER → 2024-03-27 10:22 | Outpatient (REF) | payer OTHER, BC, SELFPAY ==
[2024-03-27 11:38] LABS: Hematocrit 33.7 % (39.0-52.0); Hemoglobin 10.5 g/dL (13.0-18.0); Mean Corp Hgb Conc. 31.2 g/dL (33.0-37.0); Mean Corpuscular Hgb 28.9 pg (27.0-31.0); Mean Corpuscular Volume 92.8 fL (80.0-94.0); Mean Platelet Volume 11.1 fL (7.4-10.4); Platelet Count 165 10^3/uL (130-400); Red Blood Cell Count 3.63 10^6/uL (4.70-6.10); Red Cell Dist. Width 18.7 % (11.5-14.5)
[2024-03-27 11:48] LABS: Blood Urea Nitrogen 36 mg/dl (9-20); Calcium 7.7 mg/dl (8.4-10.2); Carbon Dioxide 26 mmol/L (22-30); Chloride 109 mmol/L (98-107); Glucose 76 mg/dl (70-99); Potassium 4.1 mmol/L (3.5-5.1); Sodium 138 mmol/L (135-145); eGFR > 60.00
== END ==
LOC: OLABWHC 10:22
PROVIDERS: ATTENDING PHYSICIAN Family Medicine
DX: D64.9 Anemia, unspecified (principal); I10 Essential (primary) hypertension
CPT/HCPCS: 36415; 80048; 85027

== ENCOUNTER → 2024-04-02 08:31 | Outpatient (REF) | payer BC, SELFPAY | LOC: RST 08:31 | PROVIDERS: ATTENDING PHYSICIAN Registered Nurse; FAMILY PHYSICIAN Family Medicine | DX: R13.12 Dysphagia, oropharyngeal phase (principal); D33.2 Benign neoplasm of brain, unspecified | CPT/HCPCS: 74230; 92611 ==

== ENCOUNTER 2024-07-26 05:25 | Inpatient (IN) | payer MEDICARE, BC, SELFPAY ==
[2024-07-25 21:39] VITALS: BP 161/95
[2024-07-25 22:51] VITALS: BP 174/74
[2024-07-25 22:56] VITALS: BMI 31.4
[2024-07-26] VITALS (7 sets, daily range): BP systolic 120–178; BP diastolic 66–98; BMI 30.4
--- NOTE | 2024-07-26 00:50 | ED.GENMED ---
History of Present Illness
<Kathe Forte PA-C - Last Filed: 07/26/24 08:40>
General
Chief Complaint: Fall
Source: patient
Exam Limitations: none
Time Seen by Provider: 07/26/24 00:46
Nursing documentation reviewed up to this point in time: agreed with
History of Present Illness
History of Present Illness:
This is a 83-year-old male with a past medical history of aortic stenosis, hypertension, hyperlipidemia, GERD, CHF who presents emergency department today with concerns of left-sided rib pain and chest pain following a fall. Patient reports that he
was walking when he lost his footing and tripped and fell onto his walker onto his left side. Patient subsequently called EMS. Patient denies shortness of breath but feels like his legs have been more swollen recently. He also reports that he has
had a recent weight gain but he is unsure of the exact amount. Patient also reports some left-sided upper abdominal pain. Patient denies any fevers or chills, cough, fainting spells. He has had rib fractures in the past as a result of the fall.
Past History
<Kathe Forte PA-C - Last Filed: 07/26/24 08:40>
Past History
ED Past Medical History: Cancer (Prostate CA), CVA, GERD, HTN, Hypercholesterolemia, Other (Aortic stenosis, Gi bleeding, Cellulitis, ) and Other (TIA)
ED Past Surgical History: Cardiac (Aortic valve replaced), Orthopedic (Total right hip replacement. Left total knee replacement), Tonsilectomy and Other (cystectomy)
Social History
Tobacco: Non-smoker
Alcohol: None
Drug: None
Personal:
Living: with family
Employment: Retired
Review of Systems
<Kathe Forte PA-C - Last Filed: 07/26/24 08:40>
Review of Systems
All Other Systems: ROS reviewed and negative except as documented in HPI and ROS
Phy Exam
<Kathe Forte PA-C - Last Filed: 07/26/24 08:40>
Physical Exam
Physical Exam:
General: Patient is well appearing and in no acute distress; non-toxic
Skin: Warm and dry, no rashes or lesions
Head: Normocephalic, atraumatic
Eyes: Sclera non-icteric. EOMs intact.
Neck: No midline spinal tenderness
Cardiac: Regular rate and rhythm, no murmurs
Peripheral Vascular: Bilateral lower extremity pitting edema
Pulm: Normal respiratory effort, no wheezes, rales, rhonchi
Abdomen: Left-sided upper abdominal tenderness to palpation noted
Musculoskeletal: Left lower chest wall tenderness noted, no palpable crepitus, no tenderness palpation bilateral upper and lower extremities
Neuro: CN II-XII intact, no focal neurologic deficits.
Psychiatric: Appropriate mood and affect.
Course
<Kathe Forte PA-C - Last Filed: 07/26/24 08:40>
Orders/Labs/Results
Orders:
Orders
07/25/24 21:41
CR Ribs-left 3 Vw W/pa Chest Urgent
Comment:
Reason For Exam: fall
07/26/24 01:15
Electrocardiogram (*1) Urgent
Reason for Study: Heart Failure, Left
EKG- Treatment ONCE
07/26/24 01:22
CT Chest/abd W Iv Cont Urgent
Comment:
Reason For Exam: left sided rib and abdominal pain
Complete Blood Count/With Diff Urgent
Comprehensive Metabolic Panel Urgent
NT-proBNP Urgent
Troponin I Urgent
07/26/24 01:34
Morphine Sulfate 2 mg IV NOW STA
07/26/24 03:33
Furosemide [Lasix] 20 mg IV NOW STA
07/26/24 04:11
Admit/Transfer Patient As Directed
Co-Sign Provider:
Level of Care: Inpatient admission
Assign to:: Telemetry
Physician / Group: Wander
Diagnosis: L Rib Fractures, CHF
Reason for Telemetry: Subacute Heart Failure
Date to Stop Telemetry: 07/28/24
Time to Stop Telemetry: 11:00
Reason for Hospitalization: L Rib Fractures, CHF
Expected length of stay greater than two midnights?: Yes
ELOS- Estimated Length of Stay in days: 3
I certify the patient meets the requirements for IP care: Yes
PRN Pain Medication Management As Directed
May give lesser potent ordered pain med per pt: Yes
preference::
Protocol:: Medication orders for pain may be administered in a
manner that supports deferring to patient preference
when the pt is:
- Requesting an ordered lesser potent pain medication.
Least to most potent pain medications are defined
as: acetaminophen < NSAID < tramadol < opioids
(morphine, oxycodone, hydromorphone).
- Requesting a lesser dose of the same medication IF
ORDERED.
- Requesting a less intrusive route of administration
if both routes are prescribed by the provider (PO <
IV).
07/26/24 04:13
Code Status As Directed
Resuscitation Status: Full Code
07/26/24 04:17
Morphine Sulfate 2 mg IV NOW STA
07/26/24 05:00
Flush (0.9% Sodium Chloride) [Flush (Nss)] See Dose Instructions IV PER PROTOCOL
07/26/24 Breakfast
Regular
At Your Request: Full Participation
Does patient need a safe tray?: No
Fluid Restriction: 1440 mL/day (48 oz)
07/26/24 06:03
Morphine Sulfate 2 mg IV Q4HPRN PRN
Polyethylene Glycol Powder [Miralax] 17 grams PO DAILY PRN constipation constipation
Tramadol HCl [Ultram] 25 mg PO Q6HPRN PRN moderate pain moderate pain
07/26/24 06:03
Echo 2D MMode Doppler [Echo 2D MMode Color/Doppler] Routine
Reason for Study: CHF
Activity As Directed
Activity Level: Ambulate
With Assistance
Bladder Scan As Directed
Follow Bladder Retention/Intermittent Cath Algorithm?: Yes
PRN if no void in __ hours: 6
Frequency: Per Retention Algorithm
If Bladder Scan Result >: 400
then:: Straight cath
EKG with chest pain [ECG as needed] As Directed
ECG as needed for:: Chest Pain
I/O [Intake/ Output] As Directed
Frequency: Per unit guidelines
Pneumatic Compression Sleeves As Directed
Type: Knee high
Straight Cath As Directed
Frequency: Per Retention Algorithm
Additional Instructions: straight cath as needed per acute urinary retention algorithm for 24 hrs
Additional Instructions: for bladder scan greater than 400 mL
Vital Signs As Directed
Frequency: Per unit guidelines
Weight As Directed
Frequency: Daily
Incentive Spirometry [Rx Incentive Spirometry] [RESP] Routine
Frequency: q1h while awake
Oxygen Therapy [O2 Therapy] [RESP] Routine
Titrate/Wean O2 to maintain O2 sat greater than (%): 94
PT Consult [Pt Eval And Treat] Routine
Activity Level: Ambulate
With Assistance
DX Deep Vein Thrombosis Video Routine
07/26/24 06:59
Troponin I Q6H
07/26/24 08:00
Acetaminophen [Tylenol] 1,000 mg PO TID
Amiodarone [Pacerone] 200 mg PO @0800
Furosemide [Lasix] 40 mg IV DAILY
Metoprolol Xl [Toprol Xl] 25 mg PO DAILY
Tamsulosin [Flomax] 0.4 mg PO DAILY
Valsartan [Diovan] 160 mg PO DAILY
07/26/24 12:03
Troponin I Q6H
07/26/24 18:03
Troponin I Q6H
07/26/24 22:00
Sennosides [Senokot] 17.2 mg PO HS
07/27/24 06:00
EKG [Electrocardiogram (*1)] IN AM
Reason for Study: Chest Pain
Basic Metabolic Panel IN AM
Complete Blood Count/No Diff IN AM
07/28/24 11:00
DC Protocol for Telemetry ONCE
Abnormal Lab Results
07/26/24
01:22
RBC 3.97 L 10^6/uL
(4.70-6.10)
Hgb 12.3 L g/dL
(13.0-18.0)
Hct 37.5 L %
(39.0-52.0)
MCV 94.5 H fL
(80.0-94.0)
MCHC 32.8 L g/dL
(33.0-37.0)
RDW 15.0 H %
(11.5-14.5)
MPV 10.7 H fL
(7.4-10.4)
Abs Immat Gran (auto) 0.1 H 10^3/uL
(0-0.05)
Absolute Neuts (auto) 8.6 H 10^3/uL
(1.4-6.5)
Absolute Lymphs (auto) 1.1 L 10^3/uL
(1.2-3.4)
Neutrophils % 82.1 H %
(42.2-75.2)
Lymphocytes % 10.7 L %
(20.5-51.1)
Chloride 109 H mmol/L
(98-107)
BUN 32 H mg/dl
(9-20)
Glucose 108 H mg/dl
(70-99)
Total Bilirubin 1.5 H mg/dl
(0.2-1.3)
Total Protein 6.0 L g/dl
(6.3-8.2)
Albumin 3.2 L g/dl
(3.5-5.0)
07/26/24 01:22
07/26/24 01:22
Vital Signs
Initial and Last Documented VS:
Initial Vital Signs
Temp Pulse Resp BP Pulse Ox
98.0 F 56 20 161/95 95
07/25/24 21:39 07/25/24 21:39 07/25/24 21:39 07/25/24 21:39 07/25/24 21:39
Last Documented Vital Signs
Temp Pulse Resp BP Pulse Ox
97.3 F 61 16 178/98 96
07/26/24 08:00 07/26/24 08:06 07/26/24 08:00 07/26/24 08:06 07/26/24 08:00
<Umm Butler, DO - Last Filed: 07/26/24 03:24>
Orders/Labs/Results
Orders:
Orders
07/25/24 21:41
CR Ribs-left 3 Vw W/pa Chest Urgent
Comment:
Reason For Exam: fall
07/26/24 01:15
Electrocardiogram (*1) Urgent
Reason for Study: Heart Failure, Left
EKG- Treatment ONCE
07/26/24 01:22
CT Chest/abd W Iv Cont Urgent
Comment:
Reason For Exam: left sided rib and abdominal pain
Complete Blood Count/With Diff Urgent
Comprehensive Metabolic Panel Urgent
NT-proBNP Urgent
Troponin I Urgent
07/26/24 01:34
Morphine Sulfate 2 mg IV NOW STA
07/26/24 03:33
Furosemide [Lasix] 20 mg IV NOW STA
07/26/24 04:11
Admit/Transfer Patient As Directed
Co-Sign Provider:
Level of Care: Inpatient admission
Assign to:: Telemetry
Physician / Group: Wander
Diagnosis: L Rib Fractures, CHF
Reason for Telemetry: Subacute Heart Failure
Date to Stop Telemetry: 07/28/24
Time to Stop Telemetry: 11:00
Reason for Hospitalization: L Rib Fractures, CHF
Expected length of stay greater than two midnights?: Yes
ELOS- Estimated Length of Stay in days: 3
I certify the patient meets the requirements for IP care: Yes
PRN Pain Medication Management As Directed
May give lesser potent ordered pain med per pt: Yes
preference::
Protocol:: Medication orders for pain may be administered in a
manner that supports deferring to patient preference
when the pt is:
- Requesting an ordered lesser potent pain medication.
Least to most potent pain medications are defined
as: acetaminophen < NSAID < tramadol < opioids
(morphine, oxycodone, hydromorphone).
- Requesting a lesser dose of the same medication IF
ORDERED.
- Requesting a less intrusive route of administration
if both routes are prescribed by the provider (PO <
IV).
07/26/24 04:13
Code Status As Directed
Resuscitation Status: Full Code
07/26/24 04:17
Morphine Sulfate 2 mg IV NOW STA
07/26/24 05:00
Flush (0.9% Sodium Chloride) [Flush (Nss)] See Dose Instructions IV PER PROTOCOL
07/26/24 Breakfast
Regular
At Your Request: Full Participation
Does patient need a safe tray?: No
Fluid Restriction: 1440 mL/day (48 oz)
07/26/24 06:03
Morphine Sulfate 2 mg IV Q4HPRN PRN
Polyethylene Glycol Powder [Miralax] 17 grams PO DAILY PRN constipation constipation
Tramadol HCl [Ultram] 25 mg PO Q6HPRN PRN moderate pain moderate pain
07/26/24 06:03
Echo 2D MMode Doppler [Echo 2D MMode Color/Doppler] Routine
Reason for Study: CHF
Activity As Directed
Activity Level: Ambulate
With Assistance
Bladder Scan As Directed
Follow Bladder Retention/Intermittent Cath Algorithm?: Yes
PRN if no void in __ hours: 6
Frequency: Per Retention Algorithm
If Bladder Scan Result >: 400
then:: Straight cath
EKG with chest pain [ECG as needed] As Directed
ECG as needed for:: Chest Pain
I/O [Intake/ Output] As Directed
Frequency: Per unit guidelines
Pneumatic Compression Sleeves As Directed
Type: Knee high
Straight Cath As Directed
Frequency: Per Retention Algorithm
Additional Instructions: straight cath as needed per acute urinary retention algorithm for 24 hrs
Additional Instructions: for bladder scan greater than 400 mL
Vital Signs As Directed
Frequency: Per unit guidelines
Weight As Directed
Frequency: Daily
Incentive Spirometry [Rx Incentive Spirometry] [RESP] Routine
Frequency: q1h while awake
Oxygen Therapy [O2 Therapy] [RESP] Routine
Titrate/Wean O2 to maintain O2 sat greater than (%): 94
PT Consult [Pt Eval And Treat] Routine
Activity Level: Ambulate
With Assistance
DX Deep Vein Thrombosis Video Routine
07/26/24 06:59
Troponin I Q6H
07/26/24 08:00
Acetaminophen [Tylenol] 1,000 mg PO TID
Amiodarone [Pacerone] 200 mg PO @0800
Furosemide [Lasix] 40 mg IV DAILY
Metoprolol Xl [Toprol Xl] 25 mg PO DAILY
Tamsulosin [Flomax] 0.4 mg PO DAILY
Valsartan [Diovan] 160 mg PO DAILY
07/26/24 12:03
Troponin I Q6H
07/26/24 18:03
Troponin I Q6H
07/26/24 22:00
Sennosides [Senokot] 17.2 mg PO HS
07/27/24 06:00
EKG [Electrocardiogram (*1)] IN AM
Reason for Study: Chest Pain
Basic Metabolic Panel IN AM
Complete Blood Count/No Diff IN AM
07/28/24 11:00
DC Protocol for Telemetry ONCE
Abnormal Lab Results
07/26/24
01:22
RBC 3.97 L 10^6/uL
(4.70-6.10)
Hgb 12.3 L g/dL
(13.0-18.0)
Hct 37.5 L %
(39.0-52.0)
MCV 94.5 H fL
(80.0-94.0)
MCHC 32.8 L g/dL
(33.0-37.0)
RDW 15.0 H %
(11.5-14.5)
MPV 10.7 H fL
(7.4-10.4)
Abs Immat Gran (auto) 0.1 H 10^3/uL
(0-0.05)
Absolute Neuts (auto) 8.6 H 10^3/uL
(1.4-6.5)
Absolute Lymphs (auto) 1.1 L 10^3/uL
(1.2-3.4)
Neutrophils % 82.1 H %
(42.2-75.2)
Lymphocytes % 10.7 L %
(20.5-51.1)
Chloride 109 H mmol/L
(98-107)
BUN 32 H mg/dl
(9-20)
Glucose 108 H mg/dl
(70-99)
Total Bilirubin 1.5 H mg/dl
(0.2-1.3)
Total Protein 6.0 L g/dl
(6.3-8.2)
Albumin 3.2 L g/dl
(3.5-5.0)
07/26/24 01:22
07/26/24 01:22
Vital Signs
Initial and Last Documented VS:
Initial Vital Signs
Temp Pulse Resp BP Pulse Ox
98.0 F 56 20 161/95 95
07/25/24 21:39 07/25/24 21:39 07/25/24 21:39 07/25/24 21:39 07/25/24 21:39
Last Documented Vital Signs
Temp Pulse Resp BP Pulse Ox
97.3 F 61 16 178/98 96
07/26/24 08:00 07/26/24 08:06 07/26/24 08:00 07/26/24 08:06 07/26/24 08:00
<Kathe Forte PA-C - Last Filed: 07/26/24 08:40>
MDM/Problems Addressed
Differential Diagnosis Includes:
Differentials include rib fracture, rib contusion, pulmonary contusion, acute CHF exacerbation, splenic laceration
MDM/Problems Addressed:
83-year-old male presents emergency department today with concerns of left-sided rib pain/chest wall pain following trip and falling on a walker. Patient reports that he has broken ribs in the past and this feels similar. On physical exam patient
is well-appearing no acute distress does have tenderness palpation of the left external chest wall and tenderness in the upper abdomen. Patient went for a CT of the chest and abdomen which revealed 2 new rib fractures as well as moderate pleural
effusions consistent with acute CHF exacerbation. Patient will be admitted for further pain management and management of CHF exacerbation. Patient started on IV diuresis. Case discussed with hospitalist for admission
Chronic conditions affecting care:
Hypertension, hyperlipidemia, CHF
<Kathe Forte PA-C - Last Filed: 07/26/24 08:40>
*Pulse Oximetry
SaO2: 93
Oxygen Mode of Delivery: Room air
Patient hypoxic: no
*Critical Care Note
Total Time (30-74mins, 75-104mins- exclusive of procedures): Not Applicable
Data Reviewed
Review of Other/Old Records Reveals: Records (Reviewed discharge summary from 03/11/2024 patient seen for humerus fracture and pubic fractures)
Source: patient and records
ED Attending Note
<Kathe Forte PA-C - Last Filed: 07/26/24 08:40>
-
Portions of this chart may have been created with voice recognition software.� Occasional wrong word or��sound alike� substitutions may have occurred due to the inherent limitations of voice recognition software.
<Umm Butler DO - Last Filed: 07/26/24 03:24>
ED Attending Note
Patient seen and examined by attending physician: Yes
I performed a history and physical exam of patient and discussed management with resident, I reviewed resident's note and agree with documented findings and plan of care.: Yes
ED Attending Note:
83-year-old gentleman with history of aortic stenosis, hypertension, CHF, remote history of prostate cancer. He has history of ambulatory dysfunction, utilizes a walker and was hospitalized acutely here after suffering mechanical fall February 2024
with resultant right humeral head fracture, pubic ramus fracture as well as several nondisplaced right rib fractures. All treated conservatively, discharged to intermediate facility and then eventually to home.
Tonight while ambulating with his walker he lost his balance and fell striking his left anterolateral chest wall on his walker. He denies head injury, no loss of consciousness. He complains of moderate pain left anterolateral chest wall.
Chest pain is worse with deep breath but he denies shortness of breath, denies cough, denies fever.
He does note approximate 10 pound weight gain since March. Admits to poor compliance with daily weights.
Exam notable for moderate tenderness left anterolateral lower costal region. Mild tenderness left upper quadrant.
Lungs with moist Rales bibasilar. No respiratory distress.
Extremities with tense +4 pitting edema bilateral lower extremities.
Chest x-ray/left rib series notable for nondisplaced fracture of the lateral left eighth rib as well as questionable fracture of the ninth rib. There is also note of bilateral pleural effusions, increased interstitial markings bilaterally
concerning for CHF. There is no evidence of pneumothorax.
With weight gain, concern for element of CHF along with acute rib fractures. Less likely pulmonary contusions as interstitial edema and pleural effusions are bilateral.
With left anterolateral lower rib fractures concern for splenic injury, renal injury thus will check CT the chest along with CT abdomen pelvis.
No head injury, no neck pain and full cervical range of motion without difficulty nor pain. No focal neurodeficits. Thus no indication for CT of the head nor cervical spine. Patient is not maintained on anticoagulants.
Will check labs including BNP, troponin, EKG.
Discharge Plan
Departure
Patient Disposition: Admit
Date of Disposition: 07/26/24
Time of Disposition: 03:37
Admit to: Med/Surg
Presentation/result/management discussed w/ accepting MD/DO: Hospitalist
Patient with high blood pressure during this ER visit?: Yes
Condition: Fair
Discharge Problem:
CHF exacerbation, Multiple rib fractures
Interventions
Interventions:
*Risk Screen - Suicide Last Done: 07/26/24 06:07
*General Assessment Last Done: 07/25/24 21:39
*Neglect/Abuse Screening Last Done: 07/25/24 22:57
*ED COVID-19 Vaccine History Last Done: 07/26/24 06:07
*Nursing Disposition Last Done: 07/26/24 06:12
ED-Musculoskeletal Assessment Last Done: 07/25/24 22:57
ED- Neurological Assessment Last Done: 07/25/24 22:57
ED-Skin Assessment Last Done: 07/25/24 22:57
Discharge Date and Time
Discharge Date/Time: 07/26/24 06:12
[2024-07-26 01:31] LABS: % Basophils 0.6 % (0-2); % Eosinophils 0.2 % (0-6); % Immature Granulocytes 0.5 % (0-0.5); % Lymphocytes 10.7 % (20.5-51.1); % Monocytes 5.9 % (1.7-9.3); % Neutrophils 82.1 % (42.2-75.2); Absolute Basophils 0.1 10^3/uL (0-0.2); Absolute Immature Granulocytes 0.1 10^3/uL (0-0.05); Absolute Lymphocytes 1.1 10^3/uL (1.2-3.4); Absolute Monocytes 0.6 10^3/uL (0.1-0.6); Absolute Neutrophils 8.6 10^3/uL (1.4-6.5); Hematocrit 37.5 % (39.0-52.0); Hemoglobin 12.3 g/dL (13.0-18.0); Mean Corp Hgb Conc. 32.8 g/dL (33.0-37.0); Mean Corpuscular Volume 94.5 fL (80.0-94.0); Mean Platelet Volume 10.7 fL (7.4-10.4); Nucleated Red Blood Cells % 0 % (-); Platelet Count 147 10^3/uL (130-400); Red Blood Cell Count 3.97 10^6/uL (4.70-6.10); White Blood Cell Count 10.4 10^3/uL (4.8-10.8)
[2024-07-26] MEDS: MORPHINE SULFATE 2 MG IV ×6 (01:35→22:15)
[2024-07-26 01:54] LABS: ALT (SGPT) 13 U/L (0-50); AST (SGOT) 20 U/L (17-59); Albumin 3.2 g/dl (3.5-5.0); Alkaline Phosphatase 115 U/L (38-126); Blood Urea Nitrogen 32 mg/dl (9-20); Calcium 8.7 mg/dl (8.4-10.2); Carbon Dioxide 28 mmol/L (22-30); Chloride 109 mmol/L (98-107); Estimated Creatinine Clearance 86 ml/min; Glucose 108 mg/dl (70-99); Potassium 4.8 mmol/L (3.5-5.1); Sodium 140 mmol/L (135-145); Total Bilirubin 1.5 mg/dl (0.2-1.3); eGFR > 60.00
[2024-07-26 01:59] LABS: NT-proBNP 3680 pg/ml; Troponin I < 0.012 ng/ml
[2024-07-26] MEDS: LASIX 20 MG IV (03:42)
--- NOTE | 2024-07-26 04:17 | HPS.HSE ---
Family Physician
-
Family Physician: Napoleon Triplett MD
Chief Complaint
-
Chest pain s/p fall
History of Present Illness
Patient is an 83y M with PMH significant for PA-Fib, CHF and ambulatory dysfunction s/p brain mass resection who presents to ED complaining of left-sided chest pain s/p fall at home. Patient states that he was ambulating with his walker when he
lost his balance and fell. He states that he fell onto his L side and noted immediate pain in the lateral / posterior ribs. He denies any head injury or LOC. He denies any prodrome of lightheadedness, chest pain, dyspnea, etc.
Patient has chronic LE swelling. He notes that his weight has been increasing at home. He is not on chronic diuretic therapy per his med list - though he states that he takes a diuretic 'maybe once a week'.
He notes that he does not take it more frequently due to urinary frequency.
Medical History
Past Medical History
Past Medical History: Reports Other
Additional Past Medical History:
Aortic Stenosis s/p AVR
Hypertension
Prostate Cancer (Watchful Waiting Approach)
Chronic HFpEF
Brain Tumor s/p Resection
Chronic Gait Dysfunction
Past Surgical History: Reports Other
Additional Past Surgical History:
Brain Mass Resection
Bovine AVR (2018)
Right Partial Hip Replacement
Right CHINMAY
T&A
Left TKA
Social History
Tobacco: Non-smoker
Alcohol: None
Drug: None
Personal:
Living: With Family
Family History
Family History: Other (Father: CHF Mother: Colon Cancer Brother: Asbestosis)
Allergies / Home Medications
Allergies reflects when Allergies were last updated in [facility].
Home Medications with original date entered in [facility]
Allergy/Medication List:
Allergies
Allergy/AdvReac Type Severity Reaction Status Date / Time
cat dander Allergy WATERY Verified 07/25/24 21:39
EYES/TINGLING
mold Allergy itchy eyes Verified 07/25/24 21:39
pollen extracts Allergy PND, Verified 07/25/24 21:39
cough,
nasal
congestion
ragweed pollen Allergy WATERY Verified 07/25/24 21:39
EYES/TINGLING
tree nut Allergy FLUSHING/IT Verified 07/25/24 21:39
LIU
stone fruit Allergy flushing,it Uncoded 07/25/24 21:39
liu
Home Medications
amiodarone 200 mg tablet 200 mg PO DIRECTED AFIB 03/03/24
metoprolol succinate 25 mg tablet,extended release 24 hr 25 mg PO DAILY Blood Pressure 03/03/24
valsartan 160 mg tablet 160 mg PO DAILY Blood Pressure 03/03/24
acetaminophen 500 mg tablet (Tylenol Extra Strength) 1,000 mg (2 x 500 mg) PO TID #90 tabs 03/13/24
cyanocobalamin (vitamin B-12) 1,000 mcg tablet 1,000 mcg PO DAILY #30 tabs 03/13/24
ferrous sulfate 325 mg (65 mg iron) tablet (FeroSul) 325 mg PO Q48H #30 tabs 03/13/24
polyethylene glycol 3350 17 gram oral powder packet 17 g PO DAILY #30 ea 03/13/24
sennosides 8.6 mg-docusate sodium 50 mg tablet 1 tab PO BID PRN Constipation #30 tabs 03/13/24
tamsulosin 0.4 mg capsule 0.4 mg PO DAILY #30 caps 03/13/24
tramadol 50 mg tablet 25 mg (1/2 x 50 mg) PO Q6HPRN PRN mod sev pain #14 tabs 03/13/24
Review of Systems
-
History Source: Patient
A 12 point ROS was completed and negative except as noted: Yes
Constitutional: Reports Weight Gain and Fatigue; Denies Fever or Chills
Respiratory: Denies Cough or Trouble Breathing
Cardiac: Reports Chest Pain; Denies Palpitations
Abdomen/GI: Denies Abdominal Pain, Nausea, Vomiting or Diarrhea
: Reports Frequency; Denies Dysuria
Musculoskeletal: Reports Edema; Denies Joint Pain
Neurological: Reports Weakness
Psych: Denies Depression or Anxiety
Physical Exam
Vital Signs
Vital Signs
Temp Pulse Resp BP Pulse Ox
98.0 F 60 12 172/76 92
07/25/24 21:39 07/26/24 03:42 07/26/24 02:23 07/26/24 03:42 07/26/24 02:23
Physical Exam
General: Other (83y M in mild distress due to pain.)
HEENT: Moist mucous membranes and PERRLA
Respiratory: Other (Decreased BS bilaterally due to decreased effort. No wheeze / rales / etc.)
Cardiac: S1/S2, Regular Rhythm, Murmur (II/ DINAH) and Other (Tenderness over the lateral left chest - ribs 6-8 area lateral / posteriorly.)
GI: Soft, Non Tender, Non Distended and Normal Bowel Sounds
Musculoskeletal: No Clubbing, No Cyanosis and Other (3+ pitting edema b/l LEs.)
Neuro: AO x 3
Laboratory Results
-
07/26/24 01:22
07/26/24 01:22
Laboratory Results
Total Bilirubin 1.5 mg/dl (0.2-1.3) H 07/26/24 01:22
AST 20 U/L (17-59) 07/26/24 01:22
ALT 13 U/L (0-50) 07/26/24 01:22
Alkaline Phosphatase 115 U/L (38-126) 07/26/24 01:22
Troponin I < 0.012 ng/ml 07/26/24 01:22
Impression/Plan
-
A/P: Patient is an 83y M with PMH significant for aortic stenosis s/p AVR, HFpEF and chronic ambulatory dysfunction who presents to ED complaining of L chest pain s/p fall.
Fall at Home
Chronic Ambulatory Dysfunction
Left Rib Fractures (6 and 8)
- Admit for further evaluation and treatment.
- Pain control / supportive care.
- PT / OT evaluations.
- Note multiple old fractures appreciated on imaging as well - speaking to his history of gait dysfunction / frequent falls.
- No suspicious prodrome, etc.
Acute on Chronic HFpEF
Bilateral Pleural Effusions - likely secondary to the above (R>L)
- Patient with significant weight gain from prior visit, LE edema and increasing BNP.
- He does not take Lasix regularly and admits that he does not monitor his weight at home as he should.
- IV Lasix daily for now.
- Follow I/Os, daily weights, etc.
- Update Echo.
- Follow for clinical improvement.
Paroxysmal Atrial Fibrillation
- Currently in paced rhythm
- On amiodarone - patient states twice weekly now.
- Not on OAC due to verified / significant fall risk.
Benign Hypertension
- Continue usual home meds with holding parameters.
- Follow for improvement with diuresis.
Anemia of Chronic Disease
- Significantly improved from prior values.
- Follow for changes in H&H.
DVT Prophylaxis: SCDs
Code Status: Full
[2024-07-26] MEDS: FLUSH (NSS) 1 FLUSH IV (04:34)
--- NOTE | 2024-07-26 07:11 | PTCARENOTE ---
Pt arrived to unit via stretcher. Pt stool and pivoted to bed. Pt oriented to room. Pt AAOx3, VSS. Call armenta within reach, plan of care ongoing.
[2024-07-26 07:36] LABS: Troponin I < 0.012 ng/ml
--- NOTE | 2024-07-26 08:05 | PTCARENOTE ---
Pt c/o moist cough, made aware.
[2024-07-26] MEDS: TYLENOL 1000 MG PO ×3 (08:06→22:10)
[2024-07-26] MEDS: TOPROL XL 25 MG PO (08:06)
[2024-07-26] MEDS: FLOMAX 0.4 MG PO (08:06)
[2024-07-26] MEDS: DIOVAN 160 MG PO (08:06)
[2024-07-26] MEDS: LASIX 40 MG IV (08:06)
[2024-07-26] MEDS: PACERONE 200 MG PO (08:08)
--- NOTE | 2024-07-26 10:25 | W.PN.HOSP.TC ---
Today's Communication/Plan
-
Echo
Chest ultrasound to assess pleural effusion with consideration of thoracentesis.
IV Lasix following daily weights and renal function
Physical therapy evaluation
Assessment / Plan
Assessment / Plan
Impression:
Patient is an 83y M with PMH significant for aortic stenosis s/p AVR, HFpEF and chronic ambulatory dysfunction who presents to ED complaining of L chest pain s/p fall.
Ambulatory dysfunction, chronic with multiple falls at home.
Left nondisplaced 6th and 8th rib fractures.
Acute CHF preserved EF exacerbation.
Bilateral pleural effusions right greater than left.
Other conditions:
Paroxysmal atrial fibrillation baseline essential hypertension.
Anemia of chronic disease.
History of resected brain mass
Aortic stenosis status post bioprosthetic aortic valve replacement
Essential hypertension.
History of prostate carcinoma
History of urinary retention
Plan:
Falls at home.
Chronic ambulatory dysfunction.
Left rib fractures (6 and 8)
Continue pain control
Physical/Occupational Therapy evaluation
Chronic gait dysfunction.
This presentation patient denies any significant prodromal loss of consciousness.
Acute on chronic CHF preserved EF.
Patient has not been on standing dose of diuretic prior to presentation
Reports worsening shortness of breath, intermittent cough and lower extremity edema possibly exacerbating ambulatory dysfunction and fall frequency.
CT scan of the chest consistent with bilateral right greater than left pleural effusion.
Overall respiratory status stable with no requirements of supplemental oxygen, although patient is minimally mobile.
Noted weight gain from around 104 KG to 114 upon presentation
Update echocardiogram.
IV diuresis with Lasix 40 mg daily monitor
Chest ultrasound to assess pleural effusion with consideration of thoracentesis
Paroxysmal Atrial Fibrillation
- Currently in paced rhythm
- On amiodarone - patient states twice weekly now.
- Not on OAC due to verified / significant fall risk.
Benign Hypertension
- Continue usual home meds with holding parameters.
- Follow for improvement with diuresis.
Anemia of Chronic Disease
- Significantly improved from prior values.
- Follow for changes in H&H.
DVT Prophylaxis: SCDs
Code Status: Full
Anticipated Discharge: 24 - 48 hours
Subjective/Interval History
-
Date of Service: July 26, 2024
Objective Data
-
Labs:
Laboratory Results
07/26/24
01:22
WBC 10.4
Hgb 12.3 L
Hct 37.5 L
Plt Count 147
Sodium 140
Potassium 4.8
Chloride 109 H
Carbon Dioxide 28
BUN 32 H
Creatinine 0.9
Glucose 108 H
Calcium 8.7
Total Bilirubin 1.5 H
AST 20
ALT 13
Alkaline Phosphatase 115
Vital Signs:
Vital Signs
Temp Pulse Resp BP Pulse Ox
97.3 F 61 16 178/98 96
07/26/24 08:00 07/26/24 08:06 07/26/24 08:00 07/26/24 08:06 07/26/24 08:00
Physical Exam
-
General: Well Developed and No Apparent Distress
HEENT: Normocephalic, Atraumatic and Moist Mucous Membranes
Respiratory: Non Labored Respirations and Decreased Breath Sounds (Breath sounds decreased bilaterally at the bases); Negative Wheezes or Rales
Cardiac: Regular Rhythm, S1/S2, Murmur and Other; Negative Rub or Gallop
GI: Soft, Nontender, Nondistended and Normal Bowel Sounds; Negative Organomegaly
Rectal: Deferred by Provider
Musculoskeletal: No Clubbing, No Cyanosis and No Edema
Skin: Negative Rash
Neuro: Nonfocal/Grossly Intact
--- NOTE | 2024-07-26 10:46 | CM ---
Addendum entered by Jaelyn Bolaños 07/26/24 11:52:
PT rec Home Health
Options reviewed - prefer [facility] home health as they had in the past
referral entered in [facility]
Addendum entered by Jaelyn Bolaños 07/26/24 10:50:
Patient has had [facility] home health in past, [facility] in past
Original Note:
Patient seen at bedside
IA completed
Dx: L rib fracture, CHF
PMH: PA-Fib, CHF and ambulatory dysfunction s/p brain mass resection
states cataract surgery 2 days ago
Patient resides with in a 1 story home, 1 step to enter
PLOF: Independent with RW
DME: RW, wheelchair, grab bars, shower chair, commode
Denies insecurities
PT to eval
PCP: Zheng Reyes
Pharmacy: [facility]
PLAN: Await PT eval, CM to continue to follow for needs
[2024-07-26 12:35] LABS: Troponin I < 0.012 ng/ml
[2024-07-26] MEDS: FLUSH (NSS) 2 FLUSH IV (16:37)
[2024-07-26 19:40] LABS: Troponin I < 0.012 ng/ml
[2024-07-26] MEDS: DESENEX/MITRAZOL/ZEASORB 1 APPLIC TOPICAL (20:44)
[2024-07-26] MEDS: SENOKOT 17.2 MG PO (22:09)
[2024-07-26] MEDS: ROBITUSSIN DM 5 ML PO (22:10)
[2024-07-27] VITALS (7 sets, daily range): BP systolic 133–151; BP diastolic 62–77; PULSE 61; BMI 30.2
[2024-07-27] MEDS: ROBITUSSIN DM 5 ML PO (02:38)
[2024-07-27] MEDS: MORPHINE SULFATE 2 MG IV ×4 (05:18→22:44)
[2024-07-27 06:29] LABS: Hematocrit 36.4 % (39.0-52.0); Hemoglobin 11.9 g/dL (13.0-18.0); Mean Corp Hgb Conc. 32.7 g/dL (33.0-37.0); Mean Corpuscular Hgb 30.7 pg (27.0-31.0); Mean Corpuscular Volume 94.1 fL (80.0-94.0); Mean Platelet Volume 11.3 fL (7.4-10.4); Platelet Count 142 10^3/uL (130-400); Red Blood Cell Count 3.87 10^6/uL (4.70-6.10); Red Cell Dist. Width 14.9 % (11.5-14.5); White Blood Cell Count 6.2 10^3/uL (4.8-10.8)
[2024-07-27 06:44] LABS: Blood Urea Nitrogen 35 mg/dl (9-20); Calcium 8.3 mg/dl (8.4-10.2); Carbon Dioxide 29 mmol/L (22-30); Chloride 109 mmol/L (98-107); Estimated Creatinine Clearance 62 ml/min; Glucose 93 mg/dl (70-99); Sodium 141 mmol/L (135-145); eGFR > 60.00
[2024-07-27] MEDS: LASIX 40 MG IV (08:37)
[2024-07-27] MEDS: TYLENOL 1000 MG PO ×3 (08:37→21:53)
[2024-07-27] MEDS: DIOVAN 160 MG PO (08:37)
[2024-07-27] MEDS: TOPROL XL 25 MG PO (08:37)
[2024-07-27] MEDS: FLUSH (NSS) 2 FLUSH IV ×3 (08:39→18:26)
[2024-07-27] MEDS: DESENEX/MITRAZOL/ZEASORB 1 APPLIC TOPICAL ×2 (08:39→21:53)
--- NOTE | 2024-07-27 11:46 | CM ---
Patient seen at bedside with
PT rec Home Health
Referral placed in [facility] for [facility] Home [facility] (accepted)
PLAN: Home with [facility] when medically stable
[place] Fax #: [phone]
to transport
--- NOTE | 2024-07-27 15:35 | W.PN.HOSP.TC ---
Today's Communication/Plan
-
Continue IV diuresis.
Watchful waiting in terms of pleural effusion monitoring. Patient has left-sided chest pain related to rib fractures, while with asymptomatic right pleural effusion.
Adjust analgesic regimen with increased tramadol and addition of gabapentin
PT evaluation
Assessment / Plan
Assessment / Plan
Impression:
Patient is an 83y M with PMH significant for aortic stenosis s/p AVR, HFpEF and chronic ambulatory dysfunction who presents to ED complaining of L chest pain s/p fall.
Ambulatory dysfunction, chronic with multiple falls at home.
Left nondisplaced 6th and 8th rib fractures.
Acute CHF preserved EF exacerbation.
Bilateral pleural effusions right greater than left.
Other conditions:
Paroxysmal atrial fibrillation baseline essential hypertension.
Anemia of chronic disease.
History of resected brain mass
Aortic stenosis status post bioprosthetic aortic valve replacement
Essential hypertension.
History of prostate carcinoma
History of urinary retention
Plan:
Falls at home.
Chronic ambulatory dysfunction.
Left rib fractures (6 and 8)
Continue pain control
Physical/Occupational Therapy evaluation
Chronic gait dysfunction.
This presentation patient denies any significant prodromal loss of consciousness.
Acute on chronic CHF preserved EF.
Patient has not been on standing dose of diuretic prior to presentation
Reports worsening shortness of breath, intermittent cough and lower extremity edema possibly exacerbating ambulatory dysfunction and fall frequency.
CT scan of the chest consistent with bilateral right greater than left pleural effusion.
Overall respiratory status stable with no requirements of supplemental oxygen, although patient is minimally mobile.
Noted weight gain from around 104 KG to 114 upon presentation
Updated echocardiogram with preserved biventricular function. Bioprosthetic aortic valve. Initially question possible ascending aortic dissection, although with no evidence of dissection on CT scan.
IV diuresis with Lasix 40 mg daily monitor
Chest ultrasound to assess pleural effusion with consideration of thoracentesis
Paroxysmal Atrial Fibrillation
- Currently in paced rhythm
- On amiodarone - patient states twice weekly now.
- Not on OAC due to verified / significant fall risk.
Benign Hypertension
- Continue usual home meds with holding parameters.
- Follow for improvement with diuresis.
Anemia of Chronic Disease
- Significantly improved from prior values.
- Follow for changes in H&H.
DVT Prophylaxis: SCDs
Code Status: Full
Anticipated Discharge: > 48 hours
Subjective/Interval History
-
Date of Service: July 27, 2024
Objective Data
-
Labs:
Laboratory Results
07/27/24
06:00
WBC 6.2
Hgb 11.9 L
Hct 36.4 L
Plt Count 142
Sodium 141
Potassium 4.0
Chloride 109 H
Carbon Dioxide 29
BUN 35 H
Creatinine 1.1
Glucose 93
Calcium 8.3 L
Vital Signs:
Vital Signs
Temp Pulse Resp BP Pulse Ox
97.4 F 61 16 133/66 94
07/27/24 02:40 07/27/24 11:22 07/27/24 11:22 07/27/24 11:22 07/27/24 11:22
I&O
07/26/24 07/27/24 07/28/24
06:59 06:59 06:59
Intake Total 480 / 480
Balance 480 / 480
Physical Exam
-
General: Well Developed and No Apparent Distress
HEENT: Normocephalic, Atraumatic and Moist Mucous Membranes
Respiratory: Non Labored Respirations and Decreased Breath Sounds (Breath sounds decreased bilaterally at the bases); Negative Wheezes or Rales
Cardiac: Regular Rhythm, S1/S2, Murmur and Other; Negative Rub or Gallop
GI: Soft, Nontender, Nondistended and Normal Bowel Sounds; Negative Organomegaly
Rectal: Deferred by Provider
Musculoskeletal: No Clubbing, No Cyanosis and No Edema
Skin: Negative Rash
Neuro: Nonfocal/Grossly Intact
[2024-07-27] MEDS: NEURONTIN 300 MG PO ×2 (16:02→21:53)
[2024-07-27] MEDS: SENOKOT 17.2 MG PO (21:53)
[2024-07-27] MEDS: ULTRAM 50 MG PO (21:58)
--- NOTE | 2024-07-27 23:50 | W.PN.UPDATE ---
Update Note
Progress Note Update
Reported by the nursing staff that the patient is complaining of pain of LT side rib/ the fracture site and his is calling concerning about the patient`s pain and prescribed pain med is not effective.
Nursing staff gave the pain meds as ordered.
Went to assess the patient x2, he was sleeping comfortably in bed. Spoke to the and explained that pain med doses was increased by the attending physician today and the patient seems comfortable in bed. Will reassess if needed.
[2024-07-28 02:32] VITALS: BP 140/73
[2024-07-28 02:36] VITALS: BMI 29.9
[2024-07-28 06:12] VITALS: BMI 29.9
[2024-07-28 07:00] VITALS: BP 126/66
[2024-07-28] MEDS: TYLENOL 1000 MG PO ×2 (07:53→16:28)
[2024-07-28] MEDS: NEURONTIN 300 MG PO ×2 (07:53→16:29)
[2024-07-28] MEDS: TOPROL XL 25 MG PO (07:53)
[2024-07-28] MEDS: DIOVAN 160 MG PO (07:53)
[2024-07-28] MEDS: DESENEX/MITRAZOL/ZEASORB 1 APPLIC TOPICAL (07:54)
[2024-07-28] MEDS: LASIX 40 MG IV (07:54)
[2024-07-28] MEDS: FLUSH (NSS) 2 FLUSH IV (07:56)
[2024-07-28 08:58] LABS: Blood Urea Nitrogen 42 mg/dl (9-20); Calcium 8.3 mg/dl (8.4-10.2); Carbon Dioxide 30 mmol/L (22-30); Chloride 108 mmol/L (98-107); Estimated Creatinine Clearance 76 ml/min; Glucose 84 mg/dl (70-99); Potassium 3.9 mmol/L (3.5-5.1); Sodium 142 mmol/L (135-145); eGFR > 60.00
[2024-07-28 11:00] VITALS: BP 133/70
--- NOTE | 2024-07-28 11:17 | CM ---
Patient with on . Patient plan is for home with [facility] health and she stated that she has information on other resources. CM will continue to follow for discharge planning needs.
Plan; home with [facility]
--- NOTE | 2024-07-28 11:30 | W.PN.HOSP.TC ---
Today's Communication/Plan
-
Monitor vital sign
see plan
Continue with IV diuresis
Monitor volume status
Will repeat ultrasound chest in 24 to 48 hours or if patient is symptomatic for possible Thora
lidocaine patch added
Discussed with spouse at bedside
Assessment / Plan
Assessment / Plan
Impression:
Patient is an 83y M with PMH significant for aortic stenosis s/p AVR, HFpEF and chronic ambulatory dysfunction who presents to ED complaining of L chest pain s/p fall.
Ambulatory dysfunction, chronic with multiple falls at home.
Left nondisplaced 6th and 8th rib fractures.
Acute CHF preserved EF exacerbation.
Bilateral pleural effusions right greater than left.
Other conditions:
Paroxysmal atrial fibrillation baseline essential hypertension.
Anemia of chronic disease.
History of resected brain mass
Aortic stenosis status post bioprosthetic aortic valve replacement
Essential hypertension.
History of prostate carcinoma
History of urinary retention
Plan:
Falls at home.
Chronic ambulatory dysfunction.
Left rib fractures (6 and 8)
Continue pain control; added lidocaine patch. cw IS
Physical/Occupational Therapy evaluation
Chronic gait dysfunction.
This presentation patient denies any significant prodromal loss of consciousness.
Acute on chronic CHF preserved EF.
Patient has not been on standing dose of diuretic prior to presentation
Reports worsening shortness of breath, intermittent cough and lower extremity edema possibly exacerbating ambulatory dysfunction and fall frequency.
CT scan of the chest consistent with bilateral right greater than left pleural effusion.
Overall respiratory status stable with no requirements of supplemental oxygen, although patient is minimally mobile.
Noted weight gain from around 104 KG to 114 upon presentation
Updated echocardiogram with preserved biventricular function. Bioprosthetic aortic valve. Initially question possible ascending aortic dissection, although with no evidence of dissection on CT scan.
IV diuresis with Lasix 40 mg daily monitor
Chest ultrasound to assess pleural effusion noted with effusion; currently assymtomatic and on room air. will reimage in 24-48hrs or if get worse and if imaging still significant then consult IR for thora
Paroxysmal Atrial Fibrillation
- Currently in paced rhythm
- On amiodarone - patient states twice weekly now.
- Not on OAC due to verified / significant fall risk.
Benign Hypertension
- Continue usual home meds with holding parameters.
- Follow for improvement with diuresis.
Anemia of Chronic Disease
- Significantly improved from prior values.
- Follow for changes in H&H.
DVT Prophylaxis: SCDs; lovenox
Code Status: Full
General: Well Developed and No Apparent Distress
HEENT: Normocephalic, Atraumatic and Moist Mucous Membranes
Respiratory: Non Labored Respirations and Decreased Breath Sounds (Breath sounds decreased bilaterally at the bases); Negative Wheezes or Rales
Cardiac: Regular Rhythm, S1/S2, Murmur and Other; Negative Rub or Gallop
GI: Soft, Nontender, Nondistended and Normal Bowel Sounds
Musculoskeletal: No Edema
Skin: Negative Rash
Neuro: Nonfocal/Grossly Intact
I spent a total of 52 minutes with the patient or on the floor. More than 50% of this time involved counseling and coordination of care.
Anticipated Discharge: > 48 hours
Subjective/Interval History
-
Date of Service: July 28, 2024
had some pain overnight
Objective Data
-
Labs:
Laboratory Results
07/28/24
06:39
Sodium 142
Potassium 3.9
Chloride 108 H
Carbon Dioxide 30
BUN 42 H
Creatinine 0.9
Glucose 84
Calcium 8.3 L
Vital Signs:
Vital Signs
Temp Pulse Resp BP Pulse Ox
97.4 F 61 18 133/70 97
07/28/24 11:00 07/28/24 11:00 07/28/24 11:00 07/28/24 11:00 07/28/24 11:00
I&O
07/27/24 07/28/24 07/29/24
06:59 06:59 06:59
Intake Total 480 / 480 1060 / 1060
Output Total 525 / 525
Balance 480 / 480 535 / 535
[2024-07-28] MEDS: MORPHINE SULFATE 2 MG IV ×2 (11:42→22:37)
[2024-07-28] MEDS: LIDOCAINE 4% PATCH 1 PATCH TOPICAL (11:43)
[2024-07-28 15:00] VITALS: BP 113/70
[2024-07-28] MEDS: LOVENOX 40 MG SC (17:44)
[2024-07-28 19:15] VITALS: BP 119/58
[2024-07-28] MEDS: NEURONTIN PO (21:40)
[2024-07-28] MEDS: TYLENOL PO (21:40)
[2024-07-28] MEDS: SENOKOT PO (21:40)
[2024-07-28] MEDS: DESENEX/MITRAZOL/ZEASORB TOPICAL (21:41)
--- NOTE | 2024-07-28 21:41 | PTCARENOTE ---
Patient asleep during rounding following report. This RN back to assess patient at this time, patient still asleep. Woke patient to review evening medications, patient states to this RN, 'No, I am good. I don't need anything tonight.' This RN
clarified with patient and reviewed scheduled medications, where patient still refusing at this time and states he does 'not need anything tonight.' Call armenta in place. Will monitor.
[2024-07-28 23:15] VITALS: BP 141/75
[2024-07-29] VITALS (7 sets, daily range): BP systolic 103–143; BP diastolic 54–78; PULSE 61; BMI 30.1
[2024-07-29] MEDS: MORPHINE SULFATE 2 MG IV ×3 (03:04→20:32)
[2024-07-29 04:06] LABS: % Basophils 0.9 % (0-2); % Eosinophils 3.3 % (0-6); % Immature Granulocytes 0.4 % (0-0.5); % Lymphocytes 13.9 % (20.5-51.1); % Monocytes 10.9 % (1.7-9.3); % Neutrophils 70.6 % (42.2-75.2); Absolute Basophils 0.1 10^3/uL (0-0.2); Absolute Eosinophils 0.3 10^3/uL (0-0.7); Absolute Lymphocytes 1.1 10^3/uL (1.2-3.4); Absolute Monocytes 0.9 10^3/uL (0.1-0.6); Absolute Neutrophils 5.6 10^3/uL (1.4-6.5); Hematocrit 39.3 % (39.0-52.0); Hemoglobin 12.3 g/dL (13.0-18.0); Mean Corp Hgb Conc. 31.3 g/dL (33.0-37.0); Mean Corpuscular Hgb 30.3 pg (27.0-31.0); Mean Corpuscular Volume 96.8 fL (80.0-94.0); Mean Platelet Volume 11.2 fL (7.4-10.4); Nucleated Red Blood Cells % 0 % (-); Platelet Count 145 10^3/uL (130-400); Red Blood Cell Count 4.06 10^6/uL (4.70-6.10); Red Cell Dist. Width 15.2 % (11.5-14.5); White Blood Cell Count 7.9 10^3/uL (4.8-10.8)
[2024-07-29 04:19] LABS: Blood Urea Nitrogen 48 mg/dl (9-20); Calcium 8.2 mg/dl (8.4-10.2); Carbon Dioxide 32 mmol/L (22-30); Chloride 110 mmol/L (98-107); Estimated Creatinine Clearance 49 ml/min; Glucose 112 mg/dl (70-99); Potassium 4.2 mmol/L (3.5-5.1); Sodium 144 mmol/L (135-145); eGFR 50.18
[2024-07-29] MEDS: TYLENOL 1000 MG PO ×2 (07:33→17:25)
[2024-07-29] MEDS: DIOVAN 160 MG PO (07:33)
[2024-07-29] MEDS: NEURONTIN 300 MG PO ×2 (07:33→17:25)
[2024-07-29] MEDS: LIDOCAINE 4% PATCH 1 PATCH TOPICAL (07:33)
[2024-07-29] MEDS: TOPROL XL 25 MG PO (07:33)
[2024-07-29] MEDS: LASIX 40 MG IV (07:34)
[2024-07-29] MEDS: DESENEX/MITRAZOL/ZEASORB 1 APPLIC TOPICAL (07:35)
[2024-07-29] MEDS: MIRALAX 17 GRAMS PO (07:38)
[2024-07-29 09:54] LABS: Urine Albumin Negative (Neg - Trace); Urine Bilirubin Negative (Negative); Urine Character Clear (Clear); Urine Color Yellow; Urine Glucose Negative (Negative); Urine Ketone Negative (Negative); Urine Leukocyte Negative (Negative); Urine Nitrite Negative (Negative); Urine Occult Blood Negative (Negative); Urine Urobilinogen Negative (Neg - 1+); Urine pH 6.5 (5.0-9.0)
--- NOTE | 2024-07-29 10:57 | W.PN.HOSP.TC ---
Today's Communication/Plan
-
Monitor vital signs see plan
Elevated creatinine today, hold further Lasix and valsartan
Discussed with spouse at bedside
Pain control
Repeat ultrasound chest tomorrow if still with significant pleural effusion then consider thoracentesis
Assessment / Plan
Assessment / Plan
Impression:
Patient is an 83y M with PMH significant for aortic stenosis s/p AVR, HFpEF and chronic ambulatory dysfunction who presents to ED complaining of L chest pain s/p fall.
Ambulatory dysfunction, chronic with multiple falls at home.
Left nondisplaced 6th and 8th rib fractures.
Acute CHF preserved EF exacerbation.
Bilateral pleural effusions right greater than left.
Other conditions:
Paroxysmal atrial fibrillation baseline essential hypertension.
Anemia of chronic disease.
History of resected brain mass
Aortic stenosis status post bioprosthetic aortic valve replacement
Essential hypertension.
History of prostate carcinoma
History of urinary retention
Plan:
Falls at home.
Chronic ambulatory dysfunction.
Left rib fractures (6 and 8)
Continue pain control; added lidocaine patch. cw IS
Physical/Occupational Therapy evaluation
Chronic gait dysfunction.
This presentation patient denies any significant prodromal loss of consciousness.
Acute on chronic CHF preserved EF.
Patient has not been on standing dose of diuretic prior to presentation
Reports worsening shortness of breath, intermittent cough and lower extremity edema possibly exacerbating ambulatory dysfunction and fall frequency.
CT scan of the chest consistent with bilateral right greater than left pleural effusion.
Overall respiratory status stable with no requirements of supplemental oxygen, although patient is minimally mobile.
Noted weight gain from around 104 KG to 114 upon presentation
Updated echocardiogram with preserved biventricular function. Bioprosthetic aortic valve. Initially question possible ascending aortic dissection, although with no evidence of dissection on CT scan.
Hold IV Lasix and losartan, creatinine 1.4 today
Chest ultrasound to assess pleural effusion noted with effusion; currently asymptomatic and on room air. Repeat ultrasound chest tomorrow and if effusion significant then consider thoracentesis
SUSANNA
Likely secondary to diuresis
Hold Lasix and valsartan
UA wnl, urine eos neg
Paroxysmal Atrial Fibrillation
- Currently in paced rhythm
- On amiodarone - patient states twice weekly now.
- Not on OAC due to verified / significant fall risk.
Benign Hypertension
- Continue usual home meds with holding parameters.
- Follow for improvement with diuresis.
Anemia of Chronic Disease
- Significantly improved from prior values.
- Follow for changes in H&H.
DVT Prophylaxis: SCDs; lovenox
Code Status: Full
General: Well Developed and No Apparent Distress
HEENT: Normocephalic, Atraumatic and Moist Mucous Membranes
Respiratory: Non Labored Respirations and Decreased Breath Sounds (Breath sounds decreased bilaterally at the bases); Negative Wheezes or Rales
Cardiac: Regular Rhythm, S1/S2, Murmur and Other; Negative Rub or Gallop
GI: Soft, Nontender, Nondistended and Normal Bowel Sounds
Musculoskeletal: No Edema
Skin: Negative Rash
Neuro: Nonfocal/Grossly Intact
I spent a total of 51 minutes with the patient or on the floor. More than 50% of this time involved counseling and coordination of care.
Anticipated Discharge: 24 - 48 hours
Subjective/Interval History
-
Date of Service: July 29, 2024
denies pain
Objective Data
-
Labs:
Laboratory Results
07/29/24
03:17
WBC 7.9
Hgb 12.3 L
Hct 39.3
Plt Count 145
Sodium 144
Potassium 4.2
Chloride 110 H
Carbon Dioxide 32 H
BUN 48 H
Creatinine 1.4 H
Glucose 112 H
Calcium 8.2 L
Vital Signs:
Vital Signs
Temp Pulse Resp BP Pulse Ox
97.6 F 61 16 143/78 96
07/29/24 07:30 07/29/24 07:30 07/29/24 07:30 07/29/24 07:30 07/29/24 07:30
I&O
07/28/24 07/29/24 07/30/24
06:59 06:59 06:59
Intake Total 1060 / 1060 660 / 660
Output Total 525 / 525
Balance 535 / 535 660 / 660
[2024-07-29] MEDS: COLACE 100 MG PO ×2 (12:21→20:32)
[2024-07-29] MEDS: LOVENOX 40 MG SC (17:25)
[2024-07-29] MEDS: DESENEX/MITRAZOL/ZEASORB TOPICAL (20:34)
[2024-07-29] MEDS: NEURONTIN PO (21:41)
[2024-07-29] MEDS: SENOKOT PO (21:42)
[2024-07-29] MEDS: TYLENOL PO (21:42)
[2024-07-30 03:49] VITALS: BMI 30.1
[2024-07-30 07:30] VITALS: BP 152/82
[2024-07-30 07:46] LABS: Blood Urea Nitrogen 47 mg/dl (9-20); Calcium 7.8 mg/dl (8.4-10.2); Carbon Dioxide 30 mmol/L (22-30); Chloride 109 mmol/L (98-107); Estimated Creatinine Clearance 56 ml/min; Glucose 84 mg/dl (70-99); Sodium 143 mmol/L (135-145); eGFR > 60.00
[2024-07-30] MEDS: COLACE 100 MG PO ×2 (08:25→20:41)
[2024-07-30] MEDS: NEURONTIN 300 MG PO ×3 (08:25→20:42)
[2024-07-30] MEDS: TOPROL XL 25 MG PO (08:25)
[2024-07-30] MEDS: TYLENOL 1000 MG PO ×3 (08:25→20:42)
[2024-07-30] MEDS: LIDOCAINE 4% PATCH 1 PATCH TOPICAL (08:26)
[2024-07-30] MEDS: DESENEX/MITRAZOL/ZEASORB 1 APPLIC TOPICAL ×2 (08:26→20:41)
[2024-07-30] MEDS: MIRALAX 17 GRAMS PO (08:46)
--- NOTE | 2024-07-30 11:45 | CM ---
Patient seen at bedside
US chest completed
PT saw patient yesterday, rec SNF, previously HH was rec
Patient and decline SNF-prefer to take home with [facility] home health.
states has son lives with them & has him to assist at home
referral in [facility] & accepted
PLAN: Home, with [facility] when stable, declines SNF
[place] Fax #: [phone]
--- NOTE | 2024-07-30 14:52 | W.PN.HOSP.TC ---
Today's Communication/Plan
-
Hold Lasix and losartan for another 24 hours
Monitor renal function
PT assessment
Discharge planing. Patient prefer to go home and would decline rehab.
Assessment / Plan
Assessment / Plan
Impression:
Patient is an 83y M with PMH significant for aortic stenosis s/p AVR, HFpEF and chronic ambulatory dysfunction who presents to ED complaining of L chest pain s/p fall.
Ambulatory dysfunction, chronic with multiple falls at home.
Left nondisplaced 6th and 8th rib fractures.
Acute CHF preserved EF exacerbation.
Bilateral pleural effusions right greater than left.
Other conditions:
Paroxysmal atrial fibrillation baseline essential hypertension.
Anemia of chronic disease.
History of resected brain mass
Aortic stenosis status post bioprosthetic aortic valve replacement
Essential hypertension.
History of prostate carcinoma
History of urinary retention
Plan:
Falls at home.
Chronic ambulatory dysfunction.
Left rib fractures (6 and 8)
Continue pain control; added lidocaine patch. cw IS
Physical/Occupational Therapy evaluation
Chronic gait dysfunction.
This presentation patient denies any significant prodromal loss of consciousness.
Acute on chronic CHF preserved EF.
Patient has not been on standing dose of diuretic prior to presentation
Reports worsening shortness of breath, intermittent cough and lower extremity edema possibly exacerbating ambulatory dysfunction and fall frequency.
CT scan of the chest consistent with bilateral right greater than left pleural effusion.
Overall respiratory status stable with no requirements of supplemental oxygen, although patient is minimally mobile.
Noted weight gain from around 104 KG to 114 upon presentation
Updated echocardiogram with preserved biventricular function. Bioprosthetic aortic valve. Initially question possible ascending aortic dissection, although with no evidence of dissection on CT scan.
Hold IV Lasix and losartan for another 24 hours. Creatinine improving down to 1.2. Plan is to resume losartan on 07/31. Home diuretic dose will be as needed for weight gain or worsening lower extremity edema.
Chest ultrasound to assess pleural effusion noted with effusion; currently asymptomatic and on room air. Repeat ultrasound chest with minimal bilateral right greater than left pleural effusion. Respiratory status remains stable with no clear
indication for thoracentesis
SUSANNA
Likely secondary to diuresis
Hold Lasix and valsartan
UA wnl, urine eos neg
Paroxysmal Atrial Fibrillation
- Currently in paced rhythm
- On amiodarone - patient states twice weekly now.
- Not on OAC due to verified / significant fall risk.
Benign Hypertension
- Continue usual home meds with holding parameters.
- Follow for improvement with diuresis.
Anemia of Chronic Disease
- Significantly improved from prior values.
- Follow for changes in H&H.
DVT Prophylaxis: SCDs; lovenox
Code Status: Full
Anticipated Discharge: Within 24 hours
Subjective/Interval History
-
Date of Service: July 30, 2024
Objective Data
-
Labs:
Laboratory Results
07/30/24
06:40
Sodium 143
Potassium 4.0
Chloride 109 H
Carbon Dioxide 30
BUN 47 H
Creatinine 1.2
Glucose 84
Calcium 7.8 L
Vital Signs:
Vital Signs
Temp Pulse Resp BP Pulse Ox
97.2 F 61 18 152/82 98
07/30/24 07:30 07/30/24 08:25 07/30/24 07:30 07/30/24 08:25 07/30/24 07:30
I&O
07/29/24 07/30/24 07/31/24
06:59 06:59 06:59
Intake Total 660 / 660 720 / 720
Output Total 1400 / 1400
Balance 660 / 660 -680 / -680
Physical Exam
-
General: Well Developed and No Apparent Distress
HEENT: Normocephalic, Atraumatic and Moist Mucous Membranes
Respiratory: Non Labored Respirations and Decreased Breath Sounds (Breath sounds decreased bilaterally at the bases); Negative Wheezes or Rales
Cardiac: Regular Rhythm, S1/S2, Murmur and Other; Negative Rub or Gallop
GI: Soft, Nontender, Nondistended and Normal Bowel Sounds; Negative Organomegaly
Rectal: Deferred by Provider
Musculoskeletal: No Clubbing, No Cyanosis and No Edema
Skin: Negative Rash
Neuro: Nonfocal/Grossly Intact
[2024-07-30 16:00] VITALS: BP 121/60
[2024-07-30 16:17] VITALS: BP 128/67; BP 131/70; PULSE 62; O2SAT 94
[2024-07-30] MEDS: LOVENOX 40 MG SC (17:41)
[2024-07-30] MEDS: SENOKOT 17.2 MG PO (20:42)
[2024-07-30] MEDS: MORPHINE SULFATE 2 MG IV (22:30)
[2024-07-30 23:25] VITALS: BP 127/62
[2024-07-31 06:07] VITALS: BMI 30.3
[2024-07-31 07:00] VITALS: BP 134/86
[2024-07-31] MEDS: COLACE 100 MG PO (07:40)
[2024-07-31] MEDS: TOPROL XL 25 MG PO (07:41)
[2024-07-31] MEDS: NEURONTIN 300 MG PO (07:41)
[2024-07-31] MEDS: TYLENOL 1000 MG PO (07:41)
[2024-07-31] MEDS: DESENEX/MITRAZOL/ZEASORB 1 APPLIC TOPICAL (07:42)
[2024-07-31] MEDS: LIDOCAINE 4% PATCH 1 PATCH TOPICAL (07:42)
[2024-07-31] MEDS: PACERONE 200 MG PO (07:43)
[2024-07-31] MEDS: MIRALAX 17 GRAMS PO (07:50)
[2024-07-31 08:54] LABS: Blood Urea Nitrogen 46 mg/dl (9-20); Calcium 8.1 mg/dl (8.4-10.2); Carbon Dioxide 29 mmol/L (22-30); Chloride 111 mmol/L (98-107); Estimated Creatinine Clearance 68 ml/min; Glucose 88 mg/dl (70-99); Potassium 4.2 mmol/L (3.5-5.1); Sodium 143 mmol/L (135-145); eGFR > 60.00
--- NOTE | 2024-07-31 12:46 | CM ---
Patient seen at bedside with
PT had rec SNF - states wants [facility] home health as they had in past
states son lives at home and will assist
referral in [facility] & updated
IMM explained & signed. In chart
PLAN: Home with [facility] home health, declined SNF
[place] Fax #: [phone]
to transport
--- NOTE | 2024-07-31 13:15 | W.DS.TRANS ---
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
-
Discharge Instructions:
Discharge Diagnosis/Procedures Ambulatory dysfunction, chronic with multiple
falls at home.
Left nondisplaced 6th and 8th rib fractures.
Acute CHF preserved EF exacerbation.
Bilateral pleural effusions right greater than
left.
Diet Regular
Instructions: *PCP/Other Office Clin Asst Heart Failure Instructions
Stand-Alone Forms:
Changes to Home Medications: Yes
Discharge Medications:
DC Medications w/original date entered in [facility]
amiodarone 200 mg tablet 200 mg PO DIRECTED AFIB 03/03/24
metoprolol succinate 25 mg tablet,extended release 24 hr 25 mg PO DAILY Blood Pressure 03/03/24
valsartan 160 mg tablet 160 mg PO DAILY Blood Pressure 03/03/24
cyanocobalamin (vitamin B-12) 1,000 mcg tablet 1,000 mcg PO DAILY #30 tabs 03/13/24
ferrous sulfate 325 mg (65 mg iron) tablet (FeroSul) 325 mg PO Q48H #30 tabs 03/13/24
tramadol 50 mg tablet 25 mg (1/2 x 50 mg) PO Q6HPRN PRN mod sev pain #14 tabs 03/13/24
finasteride 5 mg tablet 5 mg PO DAILY 07/26/24
furosemide 20 mg tablet (Lasix) 20 mg PO DAILY PRN Weight gain over 2lb #30 tabs 07/31/24
gabapentin 300 mg capsule 300 mg PO TID #90 caps 07/31/24
Home Medication Changes
Lasix added
Pending Results: No
[2024-07-31 14:02] VITALS: BP 150/76
--- NOTE | 2024-08-01 09:58 | W.HF.CON ---
Heart Failure
- LV Function
Left ventricular function study result: LV Ejection fraction >/= 50%
Ejection Fraction Percentage: 55-60
- ARNI
Patient already on ARNI: No
Heart Failure ARNI Not Indicated: LV Ejection Fraction >/= 40%
- ACEI/ARB
Patient already on ACEI/ARB: Yes
- Beta Sigrid
Patient already on Evidence Based Beta Sigrid: Yes
- Mineralocorticord Receptor Antagonist
Patient already on MRA: No
Heart Failure MRA Not Indicated: LV Ejection Fraction > 40%
- SGLT-2 Inhibitor
Patient already on SGLT-2 Inhibitor: No
Heart Failure SGLT-2 Inhibitor Not Indicated: LV Ejection Fraction >40%
- Afib Anticoagulation
Patient already on Anticoagulation for Afib: No
Heart Failure Afib Anticoagulation Contraindication: History of Falls
- NYHA CHF Classification
NYHA CHF Classification Level: Class III - Symptoms w/ min exertion, interferes w/ nml daily activity
- ACC/AHA Stage
ACC/AHA Stage: Stage C: Symptomatic Heart Failure
== END 2024-07-31 14:15 | disposition home health service (06) | DRG 542 ==
LOC: 3 WEST ACU 05:25
PROVIDERS: Internal Medicine; Physician Assistant; ADMITTING PHYSICIAN Hospitalist; ATTENDING PHYSICIAN Internal Medicine; EMERGENCY PHYSICIAN Emergency Medicine; FAMILY PHYSICIAN Family Medicine
DX: M80.0AXA Age-related osteoporosis with current pathological fracture, other site, initial encounter for fracture (principal); I50.33 Acute on chronic diastolic (congestive) heart failure; N17.9 Acute kidney failure, unspecified; I35.0 Nonrheumatic aortic (valve) stenosis; I11.0 Hypertensive heart disease with heart failure; E78.00 Pure hypercholesterolemia, unspecified; K21.9 Gastro-esophageal reflux disease without esophagitis; R35.0 Frequency of micturition; R60.0 Localized edema; C61 Malignant neoplasm of prostate; R29.6 Repeated falls; I48.0 Paroxysmal atrial fibrillation; D63.8 Anemia in other chronic diseases classified elsewhere; T50.2X6A Underdosing of carbonic-anhydrase inhibitors, benzothiadiazides and other diuretics, initial encounter; W01.0XXA Fall on same level from slipping, tripping and stumbling without subsequent striking against object, initial encounter; Y93.01 Activity, walking, marching and hiking; Y92.009 Unspecified place in unspecified non-institutional (private) residence as the place of occurrence of the external cause; Z96.641 Presence of right artificial hip joint; Z96.652 Presence of left artificial knee joint; Z91.148 Patient's other noncompliance with medication regimen for other reason; Z87.19 Personal history of other diseases of the digestive system; Z86.73 Personal history of transient ischemic attack (TIA), and cerebral infarction without residual deficits; Z85.46 Personal history of malignant neoplasm of prostate; Z95.3 Presence of xenogenic heart valve; Z80.0 Family history of malignant neoplasm of digestive organs; Z82.49 Family history of ischemic heart disease and other diseases of the circulatory system; Z91.018 Allergy to other foods; Z91.81 History of falling
CPT/HCPCS: 71101; 71260; 74160; 76604; 80048; 80053; 81003; 81099; 83880; 84484; 85025; 85027; 93005; 93306; 97110; 97116; 97162; 97530; Q9967

== ENCOUNTER → 2024-08-29 10:01 | Outpatient (REF) | payer BC, MEDICARE, SELFPAY ==
[2024-08-29 11:51] LABS: Albumin 3.6 g/dl (3.5-5.0)
[2024-09-01 02:09] LABS: 24 Hour Urine Total Volume Random mL; Urine Collection Length Random hr
== END ==
LOC: REG 10:01
PROVIDERS: ATTENDING PHYSICIAN Internal Medicine Advanced Heart Failure and Transplant Cardiology; FAMILY PHYSICIAN Family Medicine
DX: E85.9 Amyloidosis, unspecified (principal)
CPT/HCPCS: 36415; 82040; 82570; 82784; 83520; 83521; 83880; 84155; 84156; 84165; 86334; 86335

== ENCOUNTER → 2024-08-31 11:35 | Outpatient (REF) | payer BC, SELFPAY ==
[2024-08-31 14:46] LABS: 24 Hour Urine Total Volume 750 ml
[2024-09-02 12:12] LABS: 24 Hour Urine Total Volume 750 mL; Ur Free Lambda Excretion/day 6.53 mg/d; Urine Collection Length 24 hr
== END ==
LOC: REG 11:35
PROVIDERS: ATTENDING PHYSICIAN Internal Medicine Advanced Heart Failure and Transplant Cardiology; FAMILY PHYSICIAN Family Medicine
DX: E85.9 Amyloidosis, unspecified (principal)
CPT/HCPCS: 81050; 82570; 83520; 84156; 86335

== ENCOUNTER → 2024-11-08 13:35 | Outpatient (REF) | payer BC, SELFPAY | LOC: MRI 13:35 | PROVIDERS: ATTENDING PHYSICIAN Family Medicine | DX: K76.9 Liver disease, unspecified (principal); N28.9 Disorder of kidney and ureter, unspecified; R93.89 Abnormal findings on diagnostic imaging of other specified body structures | CPT/HCPCS: 74183; A9575 ==